=== PATIENT | female | born 1950 | race Caucasian/White ===

== ENCOUNTER 2023-06-15 08:52 | Outpatient (AMB) | payer MEDICARE, SELFPAY ==
--- NOTE | 2023-06-15 09:12 | AM.OFFWIN_ITS ---
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 She brought the take in for visualization. She denies any rash fever chills sweats myalgias PFSH Social History Patient Tobacco Use Status: Never used Tobacco Review of Systems Const All systems reviewed & are unremarkable except as noted in HPI and below Physical Exam Vital Signs: Last Vital Signs Temp 97.3 F 06/15/23 09:13 Pulse 80 06/15/23 09:13 BP 142/82 H 06/15/23 09:13 Pulse Ox 98 06/15/23 09:13 Oxygen Delivery Method Room Air 06/15/23 09:13 BMI result Body Mass Index 23.8 Const General: healthy appearing and no acute distress Skin Lesions: lesion noted (Lesion noted left hip with central induration and mild erythema) Assessment & Plan Assessment & Plan (1) Tick bite: Code(s): W57.XXXA - Bitten or stung by nonvenomous insect and other nonvenomous arthropods, initial encounter Plan: The patient will take preventative doxycycline. Plan See plan Medications: New doxycycline hyclate 100 mg PO .take 2 now 2 tabs 0RF 1 day Coding Level of Care Code Est Pt Level 3 (94081) Diagnoses Tick bite W57.XXXA
[2023-06-15 09:13] VITALS: BP 142/82; PULSE 80; TEMP 36.3; O2SAT 98; BMI 23.8
== END 2023-06-15 09:42 | disposition home or self-care (01) ==
PROVIDERS: Visit Provider Physician Assistant Medical
DX: T63.481A Toxic effect of venom of other arthropod, accidental (unintentional), initial encounter (principal)
CPT/HCPCS: 99213

== ENCOUNTER 2024-06-29 13:26 | Outpatient (AMB) | payer MEDICARE, SELFPAY ==
--- NOTE | 2024-06-29 13:39 | AM.OFFWIN_ITS ---
Intake Vital Signs 06/29/24 13:43 06/29/24 13:43 06/29/24 14:16 BP 200/91 H 190/95 H 160/90 H Blood Pressure Location Lt brachial Rt brachial Lt brachial Position Sitting Sitting Sitting Pulse 105 H 103 H Pulse Source Pulse Oximeter Pulse Oximeter Intake Visit Reasons: EP-High BP, no symptoms Patient Tobacco Use Status: Never used Tobacco Allergies No Known Allergies Allergy (Verified 06/15/23 09:14) HPI HPI Comments History of Present Illness Details 73 y/o Female patient who presents to [facility] walk in clinic with c/o Elevated BP readings. She had her BP checked @ her [facility] appointment today and it was elevated. She was advised to f/u with PCP for medication management. Pt currently does not have a PCP and has not been seen for awhile. Denies any Known chronic medical conditions. Denies taking any medications. Pt's BP readings in the office today elevated and Asymptomatic. [facility] Medical History (Updated 06/29/24 @ 14:37 by Luz Marina Rodriguez NP) Elevated blood pressure reading in office without diagnosis of hypertension Social History Patient Tobacco Use Status: Never used Tobacco Review of Systems Const All systems reviewed & are unremarkable except as noted in HPI and below Physical Exam Vital Signs: Last Vital Signs Pulse 103 H 06/29/24 13:43 BP 160/90 H 06/29/24 14:16 Const General: comfortable and no acute distress Nutritional Appearance: overweight Orientation/consciousness: patient oriented x3 Resp Effort & Inspection: normal respiratory effort and able to speak in complete sentences Auscultation: clear to auscultation bilaterally Cardio Rhythm: regular rhythm Heart sounds: S1 normal heart sound present and S2 normal heart sound present Neuro General: patient oriented x3, gait normal and moves all extremities Psych Speech and movement: Normal speech and movement present Assessment & Plan Assessment & Plan (1) Elevated blood pressure reading in office without diagnosis of hypertension: Code(s): R03.0 - Elevated blood-pressure reading, without diagnosis of hypertension Plan: Advised to keep BP readings Log Monitor BP at Home Twice a Day for seven Days. Advised Pt to return to [facility] clinic with BP Log Book for review If BP readings are high, will consider her on HTN medication. Advised Lifestyle changes; weight loss, exercise daily, Dash diet. Pt agrees to the plan in discussed. Coding Level of Care Code Est Pt Level 4 (71219) Diagnoses Elevated blood pressure reading in office without diagnosis of hypertension R03.0 Time Spent (min) 20
[2024-06-29 13:43] VITALS: BP 190/95; BP 200/91; PULSE 103; PULSE 105
[2024-06-29 14:16] VITALS: BP 160/90
--- OUTSIDE RECORDS SUMMARY | 2024-06-29 16:30 | XMS_ITS ---
Author Organization [facility] Address [address] [address] Care Team Providers Care Bottom Saw Operator Name Role Phone MELVIN SANDOVAL Unavailable [phone] Allergies No Known Allergies REASON FOR VISIT PMB Medications Medication SIG (Take, Route, Fr equency, Duration) Notes Start Date End Date Status Estradiol 0.1 MG/GM apply topically to p erineum nightly 06/29/2024 Active valACYclovir HCl 1 GM 1 tablet Orally Once a day Active Social History Tobacco Use: Social History Observation Description Date Details (start date - stop date) Never Smoker NA - NA Sexual History Question Answer Notes Had sex in the past 12 months (vaginal, oral, or anal)? No Have you ever had a Sexually transmitted disease ? No AUDIT-C (Standard) Question Answer Notes Did you have a drink contain ing alcohol in the past year? Yes How often did you have a dri nk containing alcohol in the past year? 2 to 3 times a week (3 points) How many drinks did you have on a typical day when you were drinking in the past year? 1 or 2 drinks (0 point) How often did you have six o r more drinks on one occasion in the past year? 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 Vital Signs Temperature 97.5 degrees Fahrenheit 06/30/19 25 Blood pressure systolic 220 mm Hg 06/30/19 25 Blood pressure diastolic 94 mm Hg 025 Height 61 in 06/29/2024 Weight 138 lbs 06/29/2024 BMI 26.07 kg/m2 06/29/2024 PT WILL GO TO [facility] [place] FOR REPEAT BP CKTHIS AFTERNOON AND CALL US WITH OUTCOME Encounters Encounter Location Date Provider Diagnosis [facility] [address] [place] [address] 06/29/2024 MELVIN SANDOVAL Abnormal uterine and vaginal bleeding, unspecified N93.9 and Elevated blood-pressure reading, without diagnosis of hypertension R03.0 Assessments Encounter Date Diagnosis (ICD Code) Assessment Notes Treatment Notes Treatment Clinical Notes Section Notes 06/29/2024 Abnormal uterine and vaginal bleeding, unspecified (ICD-10 - N93.9) Discussed options of 1. U/S to start - if lining is thin, and there is no further bleeding, the risk of uterine cancer is minimal. Pt encouraged to call with any future episodes of bleeding. or 2. sonohysterogram with endometrial biopsy. This would give a tissue diagnosis. Patient prefers to start with ultrasound, hoping to not need to proceed with biopsy/shakeelohrsoio luna. Her vaginal opening is small - advised to apply small amount of vaginal estradiol cream to the perineum/vaginal opening to allow for insertion of vaginal probe. If unable to be inserted vaginally, pt advised that she could request for the probe to be inserted rectally. 06/29/2024 Elevated blood-pressure reading, without diagnosis of hypertension (ICD-10 - R03.0) Patient with elevated blood pressure today. States she has been so very nervous about this appointment. She denies headaches, visual changes. She has no PCP. Encouraged patient to go to walk-in clinic for blood pressure check today and to call us with the results. Plan Of Treatment Medication Medication Name Sig Start Date Stop Date Notes Estradiol 0.1 MG/GM apply topically to perineum nightly Treatment Notes Assessment Notes Abnormal uterine and vaginal bleeding, unspecified Discussed options of 1. U/S to start - if lining is thin, and there is no further bleeding, the risk of uterine cancer is minimal. Pt encouraged to call with any future episodes of bleeding. or 2. sonohysterogram with endometrial biopsy. This would give a tissue diagnosis. Patient prefers to start with ultrasound, hoping to not need to proceed with biopsy/sonohysterogram. Her vaginal opening is small - advised to apply small amount of vaginal estradiol cream to the perineum/vaginal opening to allow for insertion of vaginal probe. If unable to be inserted vaginally, pt advised that she could request for the probe to be inserted rectally. Elevated blood-pressure read ing, without diagnosis of hypertension Patient with elevated blood pressure today. States she has been so very nervous about this appointment. She denies headaches, visual changes. She has no PCP. Encouraged patient to go to walk-in clinic for blood pressure check today and to call us with the results. Pending Test Test Name Order Date ULTRASOUND: PELVIC W/TRANSVAGINAL 2024 Next Appt Details Follow Up: prn, Reason: Provider Name:MELVIN Rm, 08/04/2024 01:00:00 PM, [address] [facility], [address], [place], [address], Progress Notes * VIANCA BARRERAB:[birth year] (73 yo F)Acc No.[id number]:06/29/2024 Progress Note Patient:?CHAU BARRERA Provider:?MELVIN SANDOVAL MD :1950???Age:73 Y???Sex:Female D ate:06/29/2024 Address:[address] [place] [address] Subjective: * Chief Complaints: * ???1. PMB. 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 ?73 year old female presents with c/o Abnormal bleeding:?Date problem started:?06/13/2024 ?Current bleeding problem:?postmenopausal bleeding ?Occurrence:?one time only ?Character of menopausal bleed:?spotty, bright red bleed ?Associated signs and symptoms:?no abdominal pain, no fever or chills, no vaginal odor or discharge ?She first noticed the blood on her underwear, then it continued through the day with light spotting. None since. Not sexually active since 2-3 years ago (her boyfriend is 85yo) when she was 43 yo, hasn't seen a foot press operator in the last [address] Arroyo. * ROS:?General/Constitutional:?Denies?Chills.?Denies?Fever.?Denies?Headache.?Denies?Lightheadedness.?Denie s?Weight gain.?Denies?Weight loss.?Ophthalmologic:?Patient denies?visual problems.?ENT:?Denies?Nosebleed.?Gastrointestinal:?Denies?Abdominal pain.?Denies?Blood in stool.?Denies?Hematemesis.?Denies?Rectal bleeding.?Hematology:?Denies?Easy bruising.?Denies?Family member with bleeding problems.?Women Only:?Patient complaining of?bleeding since menopause.?Genitourinary:?Denies?Blood in urine.? * Medical History:?Malignant m elanoma of other part of trunk. * Car Manager History:?/ Para?2/2.?Sexual activity?not currently sexually active.?Last Pap Smear:?20 YRS AGP PER PT.?Mammogram:?20 YRS AGO PER/PT.?LMP and menses?DEB.?History of STD's:?none.?Menarche?12.?Colonoscopy?20 YRS AGO PER/PT.?Gardasil:?has not had vaccine.? * OB History:?Total pregnancies?2.?Total living children?2.?NVD?2.? # 1:?normal spontaneous vaginal delivery (), 12/11/80, Poncho, 7lb 6oz, no complications.? # 2:?normal spontaneous vaginal delivery (), 04/24/88, Paddy (boy), 8lb 10oz, no complications.? * Surgical History:?Excision o f melanoma from abdomen 2000. * Hospitalization/Major Diagno stic Procedure:?childbirth . * Family History:?Mother: dece ased 91 yrs, dementia, cardiac.?Father: 75 yrs, lung cancer.?Sister Carlyn: alive 77 yrs, HTN.?Sister Chris: alive 62 yrs, Type 2.?Son Manuel: alive 44 yrs, well.?Son Paddy: alive 36 yrs, well.? Denies family history of breast, colon, uterine or ovarian cancers. * Social History:?Tobacco Use:?Tobacco Control (Standard)?Tobacco use:?Nonsmoker ???Sexual History:?Sexual History?Had sex in the past 12 months (vaginal, oral, or anal)??No ?Have you ever had a Sexually transmitted disease??No ?Details of Sexual History?Are you sexually active??No ?Have you had any sexually transmitted diseases (STDs)??No ?Sexual Abuse?History:?none ???Drugs/Alcohol:?Drugs?Have you used drugs other than those for medical reasons in the past 12 months??No ?Caffeine?Intake:?1-2 cups per day ???Miscellaneous:?Caffeine: 1-2 cups per day. ?Children: 2. ?Domestic violence: no, none. ?Exercise: walking. ?Home smoke detector use: yes, smoke detectors, carbon monoxide detector. ?Housing: owns a home. ?Legal problems: none. ?Living with: family SON Paddy. ?Marital status: . ?Natural support system: relies on family, relies on friends. 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 ?Pets: none. ?Sexual abuse: no, none. ?Sexually active: no. ?Travel outside of the [place]: WENT TO [place]. ?Verbal abuse: no, none. ???Household:?Household?Marital status:?Number of adults in household:?2 ???Drug/Alcohol:?AUDIT-C (Standard)?Did you have a drink containing alcohol in the past year??Yes ?How often did you have a drink containing alcohol in the past year??2 to 3 times a week (3 points) ?How many drinks did you have on a typical day when you were drinking in the past year??1 or 2 drinks (0 point) ?How often did you have six or more drinks on one occasion in the past year??Never (0 point) ?Points?3 ?Interpretation?Positive * Medications:?Taking valACYcl ovir HCl 1 GM Tablet 1 tablet Orally Once a day , Medication List reviewed and reconciled with the patient * Allergies:?N.K.D.A. Objective: * Vitals:?Ht: 61 in, Wt: 138 l bs, BMI:26.07Index, BP: 220/94 mm Hg, Temp: 97.5 F. PT WILL GO TO [facility] [place] FOR REPEAT BP CK? THIS AFTERNOON AND CALL US WITH OUTCOME. * Examination: ???General Examination: ?GENERAL APPEARANCE:? pleasant, well nourished, in no acute distress, supervisor plastic sheets present in room.?SKIN:? warm and dry.?Genitourinary - Female: ?ABDOMEN:? soft, non-tender, no mass.?EXTERNAL GENITALS:? normal.?URETHRAL MEATUS:? normal.?VAGINA:?permits one finger, healthy pink mucosa without any lesions or abnormal discharge, no lacerations.?ANUS/PERINEUM:? normal.?CERVIX:? downward, normal appearing, no cervical movement tenderness.?UTERUS:? normal size, mobile, non tender.?OVARIES:? no masses felt in adnexa.?Psychiatry: ?AFFECT:? appropriate.?ATTITUDE:? cooperative.?SPEECH:? clear.? Assessment: * Assessment: 1.?Abnormal uterine and vagi nal bleeding, unspecified - N93.9 (Primary)???2.?Elevated blood-pressure reading, without diagnosis of hypertension - R03.0??? Plan: * Treatment: 2.?Elevated blood-pressure r eading, without diagnosis of hypertension? Notes: Patient with elevated blood pressure today. States she has been so very nervous about this appointment. She denies headaches, visual changes. She has no PCP. Encouraged patient to go to walk-in clinic for blood pressure check today and to call us with the results.?? * Preventive Medicine:?~~~~~~~~~~~~~~~~~~~~~~~~~~~ How do I prepare for a pelvic ultrasound? ~~~~~~~~~~~~~~~~~~~~~~~~~~~ EAT/DRINK : Drink a minimum of 24 ounces of clear fluid at least one hour before your appointment. Do not empty your bladder until after the exam. Generally, no fasting or sedation is required for a pelvic ultrasound, unless the ultrasound is part of another procedure that requires anesthesia. For a transvaginal ultrasound, you should empty your bladder right before the procedure. Your doctor will explain the procedure to you and offer you the opportunity to ask any questions that you might have about the procedure. Based on your medical condition, your doctor may request other specific preparation. ~~~~~~~~~~~~~~~~~~~~~~~~~~~ What happens during a pelvic ultrasound? ~~~~~~~~~~~~~~~~~~~~~~~~~~~ A pelvic ultrasound may be performed in your doctor's office, on an outpatient basis, or as part of your stay in a hospital. Procedures may vary depending on your condition and your hospital's practices. Generally, a pelvic ultrasound follows this process: ~~~~~~~~~~~~~~~~~~~~~ For a transabdominal ultrasound ~~~~~~~~~~~~~~~~~~~~~ You will be asked to remove any clothing, jewelry, or other objects that may interfere with the scan. If asked to remove clothing, you will be given a gown to wear. You will lie on your back on an examination table. A gel-like substance will be applied to your abdomen. The transducer will be pressed against the skin and moved around over the area being studied. If blood flow is being assessed, you may hear a whoosh, whoosh sound when the Doppler probe is used. Images of structures will be displayed on the computer screen. Images will be recorded on various media for the health care record. Once the procedure has been completed, the gel will be removed. You may empty your bladder when the procedure is completed. ~~~~~~~~~~~~~~~~~~~ For a transvaginal ultrasound ~~~~~~~~~~~~~~~~~~~ You will be asked to remove any clothing, jewelry, or other objects that may interfere with the scan. If asked to remove clothing, you will be given a gown to wear. You will lie on an examination table, with your feet and legs supported as for a pelvic examination. A long, thin transvaginal transducer will be covered with a plastic or latex sheath and lubricated. The tip of the transducer will be inserted into your vagina. This may be slightly uncomfortable. The transducer will be gently turned and angled to bring the areas for study into focus. You may feel mild pressure as the transducer is moved. If blood flow is being assessed, you may hear a whoosh, whoosh sound when the Doppler probe is used. Images of organs and structures will be displayed on the computer screen. Images may be recorded on various media for the health care record. Once the procedure has been completed, the transducer will be removed. ~~~~~~~~~~~~~~~~~~~~~~~~~~ What happens after a pelvic ultrasound? ~~~~~~~~~~~~~~~~~~~~~~~~~~ There is no special type of care required after a pelvic ultrasound. You may resume your normal diet and activity unless your doctor advises you differently. There are no confirmed adverse biological effects on patients or instrument operators caused by exposures to ultrasound at the intensity levels used in a diagnostic ultrasound. Your doctor may give you additional or alternate instructions after the procedure, depending on your particular situation. * Follow Up:?prn * Images: Billing Information: * Visit Code:? 10296 Office Visit, New Pt., Level 3. * Procedure Codes:? 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 None since. Not sexually active since 2-3 years ago (her boyfriend is 85yo) when she was 43 yo, hasn't seen a foot press operator in the last [address] Arroyo. Current bleeding problem:: postmenopausa l bleeding ?Occurrence:: one time only ?Character of menopausal bleed:: spotty, bright red bleed Associated signs and symptom s:: no abdominal pain, no fever or chills, no vaginal odor or discharge Examination Category Sub-Category Detail Notes Category Not es Genitourinary - Female ABDOMEN: soft, non-tender, no mass EXTERNAL GENITALS: normal VAGINA: permits one finger, healthy pink mucosa without any lesions or abnormal discharge, no lacerations CERVIX: downward, normal betsy earing, no cervical movement tenderness UTERUS: normal size, mobile, non tender OVARIES: no masses felt in ad nexa URETHRAL MEATUS: normal ANUS/PERINEUM: normal Psychiatry ATTITUDE: cooperative AFFECT: appropriate SPEECH: clear General Examination GENERAL APPEARANCE: pleasant , well nourished, in no acute distress, supervisor plastic sheets present in room SKIN: warm and dry
--- OUTSIDE RECORDS SUMMARY | 2024-06-29 16:30 | XMS_ITS ---
Author Organization [facility] Address [address] [place] [address] Care Team Providers Care Technical Documentation Specialist Name Role Phone SANDOVAL, MELVIN Unavailable [phone] REASON FOR VISIT BP READING Encounters Encounter Location Date Provider Diagnosis [facility] [address] [address] 06/29/2024 MELVIN SANDOVAL Plan Of Treatment Next Appt Details Provider Name:MELVIN Rm, 08/04/2024 01:00:00 PM, [address] [place] [address], [address], [place], [address], Progress Notes * ANGEREHANA TERRELLLUIS MANUELB:[birth year] (73 yo F)Acc No.[id number]:06/29/2024 Patient:?CHAU BARRERA :1950???Age:73 Y???Sex:Female Address:[address] [place] [address], [address] * true * Date:? Generated for Printi ng/Faelsag/eTransmitting on:?06/29/2024 04:30 PM EDT
--- OUTSIDE RECORDS SUMMARY | 2024-06-29 16:30 | XMS_ITS | Patient Health Record ---
Author Organization 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 confirmed Problem Abnormal uterine bleeding (0761836893103 0) Abnormal uterine and vaginal bleeding, unspecified (N93.9) Active confirmed Vital Signs Temperature 97.5 degrees Fahrenheit 06/29/2024 PT WILL GO TO [facility] IN [place] FOR REPEAT BP CK THIS AFTERNOON AND CALL US WITH OUTCOME Blood pressure diastolic 94 mm Hg 06/29/2024 PT WILL GO TO [facility] IN [place] FOR REPEAT BP CK THIS AFTERNOON AND CALL US WITH OUTCOME Height 61 in 06/29/2024 PT WILL GO TO [facility] [place] FOR REPEAT BP CK THIS AFTERNOON AND CALL US WITH OUTCOME Blood pressure systolic 220 mm Hg 06/29/2024 PT WILL GO TO [facility] [place] FOR REPEAT BP CK THIS AFTERNOON AND CALL US WITH OUTCOME Weight 138 lbs 06/29/2024 PT WILL GO TO [facility] [place] FOR REPEAT BP CK THIS AFTERNOON AND CALL US WITH OUTCOME BMI 26.07 kg/m2 06/29/2024 PT WILL GO TO [facility] [place] FOR REPEAT BP CK THIS AFTERNOON AND CALL US WITH OUTCOME Encounters Encounter Location Date Provider Diagnosis [facility] [address] [place] [address] 06/29/2024 MELVIN SANDOVAL Abnormal uterine and vaginal bleeding, unspecified N93.9 and Elevated blood-pressure reading, without diagnosis of hypertension R03.0 [facility] [address] [place] [address] 06/29/2024 MELVIN SANDOVAL Assessments Encounter Date Diagnosis (ICD Code) Assessment [...] hoping to not need to proceed with biopsy/sonohrosio luan. Her vaginal opening is small - advised [...] us with the results. Plan Of Treatment Pending Test Test Name Order Date ULTRASOUND: PELVIC W/TRANSVAGINAL 2024 Next Appt Details Provider Name:MELVIN Rm, 08/04/2024 01:00:00 PM, [address] [facility], [address], [place], [address], Insurance Providers Payer Name Payer Address Payer Phone Subscriber Number Group Number Insured Name Patient Relationship to Insured Coverage Start Date Coverage End Date [facility] [address] [address] [place] [phone] [id number] CHAU BARRERA Self - patient is the insured Medical (General) History Medical History History ICD Code Malignant melanoma of other part of trun k C43.59 Surgical History Surgery Date(Month/Year) Excision of melanoma from abdomen 2000 Hospitalization History Reason Date(Month/Year) childbirth
== END 2024-06-29 14:37 | disposition home or self-care (01) ==
PROVIDERS: Visit Provider Nurse Practitioner Family
DX: R03.0 Elevated blood-pressure reading, without diagnosis of hypertension (principal)

== ENCOUNTER → 2024-06-29 13:26 | Outpatient (BNVA) | payer MEDICARE, SELFPAY | PROVIDERS: Visit Provider Nurse Practitioner Family | DX: R03.0 Elevated blood-pressure reading, without diagnosis of hypertension (principal) | CPT/HCPCS: 99212 ==

== ENCOUNTER 2024-08-01 09:11 | Outpatient (AMB) | payer MEDICARE, SELFPAY ==
--- NOTE | 2024-08-01 09:24 | MHC.PC.OV ---
Vital Signs 08/01/24 09:25 Height 5 ft 2 in Weight 138 lb BMI 25.2 BP 188/92 H Blood Pressure Location Rt brachial Position Sitting Respiration 14 Pulse 98 Pulse Source Pulse Oximeter Temp 97.6 F Temp Source Temporal Artery Scan Pulse Oximetry (%) 99 Oxygen Delivery Method Room Air Intake Visit Reasons: establish care Finisher Cold Rolling Required: No Accompanied by: Self / Same As Patient Allergies No Known Allergies Allergy (Verified 08/01/24 10:06) Medication List - Last Reconciled 08/01/24 by Gill Mcmillan PA-C lisinopril 10 mg PO DAILY valacyclovir 4,000 mg PO ONCE Tobacco use date assessed: 08/01/24 Fall risk assessment: No Falls in past year Last assessed Fall Risk: 08/01/24 Dental Screening Dental Screen Date: 08/01/24 Did you have a dental visit in the last 12 months?: Yes Did you have a dental problem in the last 6 months where you did not have access to dental care?: No Was dental information given to patient?: Patient has dentist HPI establish care HPI Details The patient is a 73-year-old female presenting addendum to establish a new primary care provider with concerns related to hypertension. 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 The precise blood pressure values were not mentioned; however, they were reported as significantly high. Home monitoring has been attempted, though the patient finds it difficult to obtain reliable readings with the equipment available. Although patient came in with blood pressures over 140/90 that she has been recording at home. There is a family history of hypertension, with her sister affected by high blood pressure. The patient denies symptoms that could suggest cardiovascular complications, such as chest pain, dyspnea, dizziness, cephalgia, visual disturbances, paresthesia, or jaw pain. Despite a lack of recent primary care follow-up, she has regular gynecological and dermatological evaluations. Given her elevated readings and challenges with home monitoring, the visit today is centered around establishing a management plan for her hypertension, including initiating treatment and considering necessary follow-up tests. Social History - Regular follow-ups with a supervisor parachute manufacturing and a ocular care aide. - Adheres to dental check-ups every six months. - No mention of current employment or family planning concerns. [facility] Medical History Establishing care with new doctor, encounter for Overweight with body mass index (BMI) of 25 to 25.9 in adult Hypertension Family History Father Lung cancer Mother No problems noted. Social History Housing: House Alcohol intake: current Alcohol intake frequency: holidays/special occasions only Alcohol type: wine Patient Tobacco Use Status: Never used Tobacco service: No Current occupational status: retired Cognitive needs: No Hearing needs: No Vision needs: Yes (reading glasses) Questionnaire PHQ-9 Over the last 2 weeks, how often have you been bothered by any of the following problems? 1. Little interest or pleasure in doing things: not at all 2. Feeling down, depressed, or hopeless: not at all 3. Trouble falling or staying asleep, or sleeping too much: not at all 4. Feeling tired or having little energy: not at all 5. Poor appetite or overeating: not at all 6. Feeling bad about yourself - or that you are a failure or have let yourself or your family down: not at all 7. Trouble concentrating on things, such as reading the newspaper or watching television: not at all 8. Moving or speaking so slowly that other people could have noticed. Or the opposite - being so fidgety or restless that you have been moving around a lot more than usual: not at all 9. Thoughts that you would be better off or of hurting yourself in some way: not at all Total score: 0 Depression Screening Interpretation: Negative Depression Screening Done: Yes 86389 - PHQ-9 Billing: Yes Source: Developed by Drs. Ian Gaytan, Gypsy Rodriguez, Jose Mayo and colleagues, with an educational gilberto from [employer]. Thrive Questionnaire Date Thrive assessed: 08/01/24 I am a: Patient What is your living situation today?: I have a steady place to live Within the past 12 months, did the food you bought not last and you didn't have the money to get more?: Never true Within the past 12 months, did you worry whether your food would run out before you got money to buy more?: Never true Do you have trouble paying for medicines?: No Do you have trouble getting transportation to medical appointments?: No Do you have trouble paying your heating and electricity bill?: No Do you have trouble taking care of your child, family member or friend?: No Do you have trouble with day-to-day activities such as bathing, preparing meals, shopping, managing finances, etc.?: No Are you currently unemployed and looking for a job?: No Are you interested in more education?: No Please select the resources that you would like help with: None THRIVE Score: 0 AUDIT C Alcohol Use Questionnaire (AUDIT-C) 1. How often do you have a drink containing alcohol?: Monthly or less 2. How many drinks containing alcohol do you have on a typical day when you are drinking?: 1 or 2 3. How often do you have six or more drinks on one occasion?: Never Total Score: 1 Score Reviewed/Action Taken: No BOBBY-7 AMB Questionnaire BOBBY-7 Date BOBBY - 7 assessed: 08/01/24 Feeling nervous, anxious, or on edge: 0 = Not at all Not being able to stop or control worryin = Not at all Worrying too much about different things: 0 = Not at all Trouble relaxin = Not at all Being so restless that it is hard to sit still: 0 = Not at all Becoming easily annoyed or irritable: 0 = Not at all Feeling afraid as if something awful might happen: 0 = Not at all Total BOBBY-7 score (0-4 normal; 5-9 mild; 10-14 moderate; 15-21 severe): 0 Source: Developed by Drs. Ian Gaytan, Gypsy Rodriguez, Jose Mayo and colleagues, with an educational giblerto from [employer]. BOBBY-7 Assessment Billing BOBBY-7 Assessment Tool: BOBBY-7 Assessment 70637 Review of Systems Const Details: - Cardiovascular: Denies chest pain, shortness of breath, and leg swelling. - Neurological: Denies dizziness, headaches, changes in vision, numbness, or jaw pain. - Gastrointestinal: Denies abdominal pain. - Musculoskeletal: Denies bone pain or joint issues. - General: Denies recent weight gain or loss. Physical exam (Primary Care) Vital Signs: Last Vital Signs Temp 97.6 F 08/01/24 09:25 Pulse 98 08/01/24 09:25 Resp 14 08/01/24 09:25 BP 188/92 H 08/01/24 09:25 Pulse Ox 99 08/01/24 09:25 Oxygen Delivery Method Room Air 08/01/24 09:25 Care Plan Goal for BP management: <140/90 patient will be started on lisinopril 10 mg daily. Instructed to return in 1 month for blood pressure check BMI result Body Mass Index 25.2 BMI Assessment/Plan discussion: High BMI High, discussed plan: lifestyle, weight reduction, dietary, physical activity and alcohol moderation Tobacco/Smoking Status: Tobacco use Status Tobacco use date assessed 08/01/24 08/01/24 09:34 Patient Tobacco Use Status Never used Tobacco 08/01/24 09:32 PHQ-9: PHQ-9 Score PHQ-9: Total score 0 08/01/24 10:07 Depression Screening Interpretation: Negative Thrive Assessment: Date of Thrive Assessment Date Thrive assessed 08/01/24 08/01/24 09:34 Const Other: Appearance: Alert. Oriented X3. No acute distress. Head: Normal external exam. Normocephalic. Atraumatic. Eyes: Pupils are equal, round, and reactive to light. Extraocular movements intact. Conjunctiva and sclera normal. Eyelids normal. Ears: External auditory canal normal. Tympanic membranes normal. Throat: Pharynx normal. Uvula midline. Moist mucous membranes. Neck: Normal inspection. Neck supple. Full range of motion. Cardiovascular: Normal heart rate and rhythm. Heart sound normal. No murmurs noted. Pulses normal throughout. Respiratory: No respiratory distress. Painless inspiration. Breath sounds normal. No wheezes/rales/rhonchi noted. Chest nontender. No accessory muscle usage noted or decreased air movement noted. Abdomen: Soft and nontender. No distention noted. No organomegaly noted. Back: No costovertebral angle tenderness. Full range of motion noted. Skin: Skin warm and dry. Normal skin color. Normal skin turgor. No rashes/lesions/lacerations noted. Extremities: No lower extremity edema. Extremities exhibit normal range of motion. Extremities nontender. Neuro: Oriented X 3. No motor deficit. No sensory deficit. Reflexes normal. Coding Level of Care Code Est Pt Level 4 (83519) Complex EM visit Add On G2211 Diagnoses Establishing care with new doctor, encounter for Z76.89 Overweight with body mass index (BMI) of 25 to 25.9 in adult E66.3; Z68.25 Hypertension I10 Additional Codes PHQ-9 - 98590 - PHQ-9 Billing: Yes ([id number]) BOBBY-7 Assessment Billing - BOBBY-7 Assessment Tool: BOBBY-7 Assessment 16678 ([id number]) Assessment & Plan Assessment & Plan (1) Establishing care with new doctor, encounter for: Code(s): Z76.89 - Persons encountering health services in other specified circumstances Category: Medical Plan: Patient has not seen a primary care in over 20 years. Patient here to establish a new primary care provider. (2) Overweight with body mass index (BMI) of 25 to 25.9 in adult: Code(s): E66.3 - Overweight; Z68.25 - Body mass index [BMI] 25.0-25.9, adult Category: Medical Plan: Patient to improve her diet and exercise regimen. Decreased any fatty fried salty foods. Condition is chronic and stable will continue to monitor. (3) Hypertension: Code(s): I10 - Essential (primary) hypertension Category: Medical Plan: Patient will be started on lisinopril 10 mg daily. Patient to follow her blood pressure over the next month with a blood pressure log. Patient to return in 1 month. Goal for blood pressure is less than 140/90. Condition is chronic and stable will continue to monitor. Plan Plan Patient was informed and verbally consented to the use of an ambient scribe for clinic note documentation during this visit. 1. Essential Hypertension The patient is initiated on lisinopril 10 mg daily to manage essential hypertension. Monitoring blood pressure at home is recommended, along with dietary modifications to reduce sodium and caffeine. Risks, including angioedema and cough associated with lisinopril, were reviewed. A follow-up with a blood pressure log is planned in one month. The discussion with the patient regarding essential hypertension emphasized the necessity of initiation of lisinopril to manage high blood pressure. I explained the potential side effects, including angioedema and cough, and the importance of avoiding high sodium and caffeine intake for blood pressure control. We reviewed how to monitor her blood pressure at home, ensuring she is ready to return with readings for her next visit. The plan includes follow-up for further evaluation of blood pressure management efficacy and treatment adjustment if necessary. Orders: Orders XR DEXA axial skeleton Today M81.0 - Age-related osteoporosis without current pathological fracture Liver Panel Today Z00.00 - Encounter for general adult medical examination without abnormal findings Hemoglobin A1c Today Z00.00 - Encounter for general adult medical examination without abnormal findings Vitamin B12 and Folate Today Z00.00 - Encounter for general adult medical examination without abnormal findings MM screening mammo BI Today Z12.31 - Encounter for screening mammogram for malignant neoplasm of breast C Reactive Protein Today Z00.00 - Encounter for general adult medical examination without abnormal findings Complete Blood Count Auto Diff Today Z00.00 - Encounter for general adult medical examination without abnormal findings Comprehensive [place] [facility]. Panel Fast Today Z00.00 - Encounter for general adult medical examination without abnormal findings Magnesium Today Z00.00 - Encounter for general adult medical examination without abnormal findings Lipid Panel Today Z00.00 - Encounter for general adult medical examination without abnormal findings TSH reflex Free T4 Today Z00.00 - Encounter for general adult medical examination without abnormal findings Vitamin D 25-OH Total Today Z00.00 - Encounter for general adult medical examination without abnormal findings Referrals Gastroenterology Referral Z12.11 - Encounter for screening for malignant neoplasm of colon Medications: New lisinopril 10 mg PO DAILY 30 tabs 0RF I10 - Essential (primary) hypertension Patient Instructions: - Start lisinopril 10 mg daily as prescribed. - Record blood pressure readings at home and keep a log. - Avoid high-sodium foods, caffeine, and fatty or fried foods. - Return for follow-up in one month with your blood pressure log. - If you experience severe lip swelling or breathing difficulty, call 911. - Report any persistent dry cough or rash.
[2024-08-01 09:25] VITALS: BP 188/92; PULSE 98; RESP 14; TEMP 36.4; O2SAT 99; BMI 25.2
--- OUTSIDE RECORDS SUMMARY | 2024-08-01 09:51 | XMS_ITS | Patient Health Record ---
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) Active confirmed Problem Abnormal uterine bleeding ([id number] 0) Abnormal uterine and vaginal bleeding, unspecified (N93.9) Active confirmed Vital Signs Temperature 97.5 degrees Fahrenheit 06/29/2024 PT WILL GO TO [facility] IN [place] FOR REPEAT BP CK THIS AFTERNOON AND CALL US WITH OUTCOME Blood pressure diastolic 94 mm Hg 06/29/2024 PT WILL GO TO [facility] IN [place] FOR REPEAT BP CK THIS AFTERNOON AND CALL US WITH OUTCOME Height 61 in 06/29/2024 PT WILL GO TO [facility] [place] FOR REPEAT BP CK THIS AFTERNOON AND CALL US WITH OUTCOME Blood pressure systolic 220 mm Hg 06/29/2024 PT WILL GO TO [facility] [place] FOR REPEAT BP CK THIS AFTERNOON AND CALL US WITH OUTCOME Weight 138 lbs 06/29/2024 PT WILL GO TO [facility] [place] FOR REPEAT BP CK THIS AFTERNOON AND CALL US WITH OUTCOME BMI 26.07 kg/m2 06/29/2024 PT WILL GO TO [facility] [place] FOR REPEAT BP CK THIS AFTERNOON AND CALL US WITH OUTCOME Encounters Encounter Location Date Provider Diagnosis [facility] [address] [place] [address] 06/29/2024 MELVIN SANDOVAL Abnormal uterine and vaginal bleeding, unspecified N93.9 and Elevated blood-pressure reading, without diagnosis of hypertension R03.0 [facility] [place] [address] [place] [address] 06/29/2024 MELVIN SANDOVAL Assessments Encounter Date Diagnosis [...] to not need to proceed with biopsy/sonohrosio luna. Her vaginal opening is small - [...] Name:MELVIN Rm, 08/04/2024 01:00:00 PM, [address] [facility], [address], [place], [address], Insurance Providers Payer Name Payer Address Payer Phone Subscriber Number Group Number Insured Name Patient Relationship to Insured Coverage Start Date Coverage End Date [facility] [address] [address] [place] [address] [id number] CHAU BARRERA Self - patient is the insured Medical (General) History Medical History History ICD Code Malignant melanoma of other part of trun k C43.59 Surgical History Surgery Date(Month/Year) Excision of melanoma from abdomen 2000 Hospitalization History Reason Date(Month/Year) childbirth
== END 2024-08-01 10:03 | disposition home or self-care (01) ==
LOC: HO.HMCSH 09:11
PROVIDERS: PCP Internal Medicine; Visit Provider Physician Assistant Medical
DX: Z76.89 Persons encountering health services in other specified circumstances (principal); E66.3 Overweight; Z68.25 Body mass index [BMI] 25.0-25.9, adult; I10 Essential (primary) hypertension

== ENCOUNTER → 2024-08-01 09:11 | Outpatient (BNVA) | payer MEDICARE, SELFPAY | PROVIDERS: PCP Internal Medicine; Visit Provider Physician Assistant Medical | DX: E66.3 Overweight (principal); Z68.25 Body mass index [BMI] 25.0-25.9, adult; I10 Essential (primary) hypertension; Z76.89 Persons encountering health services in other specified circumstances; Z71.3 Dietary counseling and surveillance | CPT/HCPCS: 96127; 99212 ==

== ENCOUNTER 2024-08-28 08:46 | Outpatient (REF) | payer MEDICARE, SELFPAY ==
--- OUTSIDE RECORDS SUMMARY | 2024-08-28 09:12 | XMS_ITS ---
Author Organization [facility] Address [facility] [address] [address] Care Team Providers Care Assistance Coordinator Name Role Phone MELVIN SANDOVAL Unavailable [phone] REASON FOR VISIT ULTRA - PMB Encounters Encounter Location Date Provider Diagnosis [facility], [facility] [address] [place] [address] 08/04/2024 MELVIN SANDOVAL Plan Of Treatment Next Appt Details Provider Name:MELVIN Rm, 09/22/2024 10:00:00 AM[facility] [address], [place], [address], Provider Name:MELVIN Rm, 09/22/2024 10:00:00 AM, [facility], [address], [place], [address], Progress Notes * FIDEL BARRERAADOB:[birth year] (73 yo F)Acc No.[id number]:08/04/2024 PROGRESS NOTES Patient:?REHANA BARRERAINDA Provider:?MELVIN SANDOVAL MD :1950???Age:73 Y???Sex:Female D ate:08/04/2024 Address:[address] [place], [place] [id number] Subjective: * Chief Complaints: * ???1. ULTRA - PMB. * Medical History:? Objective: * Vitals:? Assessment: Plan: * Treatment: * Images: Billing Information: * Visit Code:? * Procedure Codes:? * Electronic signature of MELVIN SANDOVAL MD on 08/28/2024 at 09:11 AM EDT Sign off status: Pending * Provider:?MELVIN SANDOVAL MD Date:?2024 Generated for Jess weiss/Jarod/Edi on:?08/28/2024 09:11 AM EDT
[2024-08-28 13:21] LABS: MANUAL DIFF FLAG NO
[2024-08-28 13:29] LABS: Basophils Absolute Auto 0.1 X10*3/uL (0.0-0.2); Basophils Percent Auto 1.2 % (0-2); Eosinophils Percent Auto 0.2 % (0-4); Hematocrit 46.2 % (37.0-47.0); Hemoglobin 15.8 g/dl (12.0-16.0); Imm Gran Abs Auto 0.01 X10*3/uL (0.00-0.03); Imm Gran Pct Auto 0.2 % (0.0-0.4); Lymphocytes Absolute Auto 1.9 X10*3/uL (1.2-4.9); Lymphocytes Percent Auto 31.1 % (20-40); Mean Corpuscular HGB Conc 34.2 g/dl (31.0-35.0); Mean Corpuscular Hemoglobin 32.8 pg (27.0-33.0); Mean Platelet Volume 10.6 fL (9.4-12.3); Monocytes Absolute Auto 0.5 X10*3/uL (0.1-1.2); Monocytes Percent Auto 8.3 % (2-11); Neutrophils Absolute Auto 3.6 x10*3/uL (2.0-8.3); Platelet Count 246 X10*3/uL (160-400); Red Blood Count 4.81 X10*6/uL (4.20-5.50); Red Cell Distribution Width 13.3 % (11.0-16.0); White Blood Count 6.1 X10*3/uL (4.8-10.8)
[2024-08-28 13:43] LABS: Estimated Average Glucose 108 mg/dL; Hemoglobin A1c % 5.4 % (<6.0); Total Hemoglobin (HGBA1C) 4121.3043 umol/L
[2024-08-28 14:03] LABS: Alanine Aminotransferase 23 U/L (0-31); Albumin Level 4.6 g/dL (3.5-5.0); Alkaline Phosphatase 63 U/L (39-117); Anion Gap 14 (12-20); Aspartate Amino Transferase 29 U/L (5-31); Bilirubin Direct 0.2 mg/dL (0.0-0.5); Bilirubin Total 0.5 mg/dL (0.0-1.0); Blood Urea Nitrogen 11 mg/dL (9-16); C Reactive Protein 0.14 mg/dL (< or = 0.50); Calcium 9.7 mg/dL (8.4-10.2); Carbon Dioxide 25 mmol/L (22-29); Chloride 104 mmol/L (96-108); Cholesterol 231 mg/dL (<200); Estimated Glomerular Filt Rate > 60; Glucose Fasting 98 mg/dL (60-99); HDL Cholesterol 74 mg/dL (>40); LDL Cholesterol Calculated 138 mg/dL (<100); Magnesium 2.2 mg/dL (1.6-2.6); Potassium 4.5 mmol/L (3.3-5.1); Sodium 138 mmol/L (135-145); TSH reflex Free T4 1.54 uIU/mL (0.32-4.0); Total Protein 7.1 g/dL (6.5-8.0); Triglycerides 99 mg/dL (<150); Vitamin D 25-OH Total 102.8 ng/mL (>30)
[2024-08-28 14:17] LABS: Folate 13.8 ng/mL (> or = 4.0); Vitamin B12 623 pg/mL (200-900)
== END 2024-08-28 08:47 | disposition home or self-care (01) ==
LOC: HO.HMGCLDS 08:46
PROVIDERS: PCP Physician Assistant Medical; Visit Provider Physician Assistant Medical
DX: Z00.00 Encounter for general adult medical examination without abnormal findings (principal); Z13.1 Encounter for screening for diabetes mellitus
CPT/HCPCS: 36415; 80053; 80061; 80076; 82248; 82306; 82607; 82746; 83036; 83735; 84443; 85025; 86140

== ENCOUNTER 2024-09-05 08:51 | Outpatient (AMB) | payer MEDICARE, SELFPAY ==
--- OUTSIDE RECORDS SUMMARY | 2024-08-04 09:00 | XMS_ITS ---
Author Organization [facility] [employer] [facility] [address] [address] Care Team Providers Care Web Marketing Coordinator Name Role Phone MELVIN SANDOVAL Unavailable [phone] REASON FOR VISIT ULTRA - PMB Encounters Encounter Location Date Provider Diagnosis [facility] [employer] [address] [facility] [address] [place] [address] 08/04/2024 MELVIN SANDOVAL Plan Of Treatment Next Appt Details Provider Name:MELVIN Rm, 09/22/2024 10:00:00 AM, [facility], [address], [place], [address], Provider Name:MELVIN Kemar Rm, 09/22/2024 10:00:00 AM, [facility], [address], [place], [address], Progress Notes * FIDEL BARRERAADOB:[birth year] (74 yo F)Acc No.[id number]:08/04/2024 PROGRESS NOTES Patient: FIDEL CHAVEZA Provider: Kemar SANDOVAL MD :1950 A ge:73 Y S ex:Female Date:08/04/2024 Address:[address] [place], [place] [id number] Subjective: * Chief Complaints: * 1 . ULTRA - PMB. * Medical History: Objective: * Vitals: Assessment: Plan: * Treatment: * Images: Billing Information: * Visit Code: * Procedure Codes: * Electronic signature of MELVIN SANDOVAL MD on 09/05/2024 at 09:15 AM EDT Sign off status: Pending * Provider: Kemar SANDOVAL MD Date: 0 08/04/2024 Generated for Jess weiss/Jarod/Edi on: 0 09/05/2024 09:15 AM EDT
--- NOTE | 2024-09-05 08:58 | A.OFFPC_ITS ---
Vital Signs 09/05/24 09:04 Height 5 ft 1 in Weight 135 lb 0.4 oz BMI 25.5 BP 132/78 Blood Pressure Location Lt brachial Position Sitting Pulse 87 Pulse Source Pulse Oximeter Temp 97.5 F Pulse Oximetry (%) 99 Intake Visit Reasons: 1 month follow up Intake Note: no issues just would like to review blood work Allergies No Known Allergies Allergy (Verified 09/05/24 09:23) Medication List - Last Reconciled 09/05/24 by Gill Mcmillan PA-C lisinopril 10 mg PO DAILY valacyclovir 4,000 mg PO ONCE Tobacco use date assessed: 08/01/24 Fall risk assessment: No Falls in past year Dental Screening Dental Screen Date: 08/01/24 Did you have a dental visit in the last 12 months?: Yes Did you have a dental problem in the last 6 months where you did not have access to dental care?: No Was dental information given to patient?: No HPI 1 month follow up HPI Details The patient is a 74-year-old female presenting for management of hypertension and hyperlipidemia. The patient has been taking lisinopril 10 mg daily for hypertension without experiencing any adverse effects. Her blood pressure was initially recorded at 152/70 mmHg, but upon retaking, it was 130/78 mmHg, which aligns with her home readings. She reports no symptoms such as chest pain, shortness of breath, numbness, or headaches. The patient has a history of hyperlipidemia with a total cholesterol level of 231 mg/dL and LDL cholesterol of 138 mg/dL. She is interested in managing her cholesterol through dietary modifications and has been provided with educational materials to assist with this. Social History - Nutrition: Patient is interested in di etary modifications to manage cholesterol and reports eating well. [facility] Medical History (Updated 09/05/24 @ 09:58 by Gill Mcmillan PA-C) Hyperlipidemia Pure hypercholesterolemia, unspecified Establishing care with new doctor, encounter for Overweight with body mass index (BMI) of 25 to 25.9 in adult Hypertension Family History Father Lung cancer Mother No problems noted. Social History Housing: House Alcohol intake: current Alcohol intake frequency: holidays/special occasions only Alcohol type: wine Patient Tobacco Use Status: Never used Tobacco e-Cigarette/Vaping Use: Never Used service: No Current occupational status: retired Cognitive needs: No Hearing needs: No Vision needs: Yes (reading glasses) Questionnaire PHQ-9 Over the last 2 weeks, how often have you been bothered by any of the following problems? 1. Little interest or pleasure in doing things: not at all 2. Feeling down, depressed, or hopeless: not at all 3. Trouble falling or staying asleep, or sleeping too much: not at all 4. Feeling tired or having little energy: not at all 5. Poor appetite or overeating: not at all 6. Feeling bad about yourself - or that you are a failure or have let yourself or your family down: not at all 7. Trouble concentrating on things, such as reading the newspaper or watching television: not at all 8. Moving or speaking so slowly that other people could have noticed. Or the opposite - being so fidgety or restless that you have been moving around a lot more than usual: not at all 9. Thoughts that you would be better off or of hurting yourself in some way: not at all Total score: 0 Depression Screening Interpretation: Negative Depression Screening Done: Yes 45721 - PHQ-9 Billing: Yes Source: Developed by Drs. Ian Gaytan, Gypsy Rodriguez, Jose Mayo and colleagues, with an educational gilberto from [employer]. Thrive Questionnaire Date Thrive assessed: 08/01/24 I am a: Patient What is your living situation today?: I have a steady place to live Within the past 12 months, did the food you bought not last and you didn't have the money to get more?: Never true Within the past 12 months, did you worry whether your food would run out before you got money to buy more?: Never true Do you have trouble paying for medicines?: No Do you have trouble getting transportation to medical appointments?: No Do you have trouble paying your heating and electricity bill?: No Do you have trouble taking care of your child, family member or friend?: No Do you have trouble with day-to-day activities such as bathing, preparing meals, shopping, managing finances, etc.?: No Are you currently unemployed and looking for a job?: No Are you interested in more education?: No Please select the resources that you would like help with: None THRIVE Score: 0 AUDIT C Alcohol Use Questionnaire (AUDIT-C) 1. How often do you have a drink containing alcohol?: Monthly or less 2. How many drinks containing alcohol do you have on a typical day when you are drinking?: 1 or 2 3. How often do you have six or more drinks on one occasion?: Never Total Score: 1 Score Reviewed/Action Taken: No BOBBY-7 AMB Questionnaire BOBBY-7 Date BOBBY - 7 assessed: 08/01/24 Feeling nervous, anxious, or on edge: 0 = Not at all Not being able to stop or control worryin = Not at all Worrying too much about different things: 0 = Not at all Trouble relaxin = Not at all Being so restless that it is hard to sit still: 0 = Not at all Becoming easily annoyed or irritable: 0 = Not at all Feeling afraid as if something awful might happen: 0 = Not at all Total BOBBY-7 score (0-4 normal; 5-9 mild; 10-14 moderate; 15-21 severe): 0 Source: Developed by Drs. Ian Gaytan, Gypsy Rodriguez, Jose Maoy and colleagues, with an educational gilberto from [employer]. BOBBY-7 Assessment Billing BOBBY-7 Assessment Tool: BOBBY-7 Assessment 58882 Review of Systems Const Details: - Cardiovascular: Denies chest pain, orthopnea, or syncope. - Respiratory: Denies dyspnea, cough, or wheezing. - Neurological: Denies headaches, dizziness, or numbness. - Dermatological: Denies rashes or swelling. Physical exam (Primary Care) Vital Signs: Last Vital Signs Temp 97.5 F 09/05/24 09:04 Pulse 87 09/05/24 09:04 BP 152/78 H 09/05/24 09:04 Pulse Ox 99 09/05/24 09:04 Care Plan Goal for BP management: <140/90 at Goal BMI result Body Mass Index 25.5 Tobacco/Smoking Status: Tobacco use Status Tobacco use date assessed 08/01/24 09/05/24 09:07 Patient Tobacco Use Status Never used Tobacco 09/05/24 09:07 e-Cigarette/Vaping Use Never Used 09/05/24 09:07 PHQ-9: PHQ-9 Score PHQ-9: Total score 0 09/05/24 09:07 Depression Screening Interpretation: Negative Thrive Assessment: Date of Thrive Assessment Date Thrive assessed 08/01/24 09/05/24 09:07 Const Other: Appearance: Alert. Oriented X3. No acute distress. Head: Normal external exam. Normocephalic. Atraumatic. Eyes: Pupils are equal, round, and reactive to light. Extraocular movements intact. Conjunctiva and sclera normal. Eyelids normal. Throat: Pharynx normal. Uvula midline. Moist mucous membranes. Neck: Normal inspection. Neck supple. Full range of motion. Cardiovascular: Normal heart rate and rhythm. Heart sound normal. No murmurs noted. Pulses normal throughout. Respiratory: No respiratory distress. Painless inspiration. Breath sounds normal. No wheezes/rales/rhonchi noted. Chest nontender. No accessory muscle usage noted or decreased air movement noted. Back: Full range of motion noted. Skin: Skin warm and dry. Normal skin color. Normal skin turgor. No rashes/lesions/lacerations noted. Extremities: Extremities exhibit normal range of motion. Neuro: Oriented X 3. No motor deficit. No sensory deficit. Reflexes normal. Results Reviewed Results Reviewed: - Labs: Total cholesterol 231 mg/dL, LDL cholesterol 138 mg/dL Coding Level of Care Code Est Pt Level 4 (71250) Complex EM visit Add On G2211 Diagnoses Hypertension I10 Pure hypercholesterolemia, unspecified E78.00 Hyperlipidemia E78.5 Additional Codes BOBBY-7 Assessment Billing - BOBBY-7 Assessment Tool: BOBBY-7 Assessment 47945 ([id number]) PHQ-9 - 39782 - PHQ-9 Billing: Yes ([id number]) Assessment & Plan Assessment & Plan (1) Hypertension: Code(s): I10 - Essential (primary) hypertension Category: Medical Plan: The patient is currently on lisinopril 10 mg daily, which she tolerates well without side effects. Her blood pressure readings have improved, with a current measurement of 130/78 mmHg, consistent with home readings. A follow-up in three months is planned to monitor blood pressure control. Condition is chronic and stable will continue to monitor. (2) Pure hypercholesterolemia, unspecified: Code(s): E78.00 - Pure hypercholesterolemia, unspecified Category: Medical Plan: The patient has elevated cholesterol levels with a total cholesterol of 231 mg/dL and LDL of 138 mg/dL. Patient was not interested in starting cholesterol- lowering medication at this time she would like to trial diet and exercise 1st as this is the 1st time she was told she had high cholesterol. She is advised to implement dietary changes to lower cholesterol, supported by educational materials provided during the visit. A follow-up is scheduled in three months to assess the effectiveness of dietary interventions. ASCVD score 16.4%. (3) Hyperlipidemia: Code(s): E78.5 - Hyperlipidemia, unspecified Category: Medical Plan: The patient has elevated cholesterol levels with a total cholesterol of 231 mg/dL and LDL of 138 mg/dL. Patient was not interested in starting cholesterol- lowering medication at this time she would like to trial diet and exercise 1st as this is the 1st time she was told she had high cholesterol. She is advised to implement dietary changes to lower cholesterol, supported by educational materials provided during the visit. A follow-up is scheduled in three months to assess the effectiveness of dietary interventions. ASCVD score 16.4%. Condition is chronic and stable continue to monitor. Plan Plan Patient was informed and verbally consented to the use of an ambient scribe for clinic note documentation during this visit. 1. Essential Hypertension The patient is currently on lisinopril 10 mg daily, which she tolerates well without side effects. Her blood pressure readings have improved, with a current measurement of 130/78 mmHg, consistent with home readings. A follow-up in three months is planned to monitor blood pressure control. 2. Hyperlipidemia The patient has elevated cholesterol levels with a total cholesterol of 231 mg/dL and LDL of 138 mg/dL. Patient was not interested in starting cholesterol- lowering medication at this time she would like to trial diet and exercise 1st as this is the 1st time she was told she had high cholesterol. She is advised to implement dietary changes to lower cholesterol, supported by educational materials provided during the visit. A follow-up is scheduled in three months to assess the effectiveness of dietary interventions. ASCVD score 16.4%. During the visit, we discussed the management of hypertension and hyperlipidemia. I advised the patient to continue lisinopril for blood pressure control and provided dietary recommendations to manage cholesterol levels. We agreed on a follow-up in three months to evaluate the effectiveness of these interventions. Patient Instructions: - Continue taking lisinopril 10 mg daily in the morning. - Follow the dietary guidelines provided to help lower cholesterol levels. - Schedule a follow-up appointment in three months to reassess blood pressure and cholesterol management.
[2024-09-05 09:04] VITALS: BP 132/78; PULSE 87; TEMP 36.4; O2SAT 99; BMI 25.5
== END 2024-09-05 09:28 | disposition home or self-care (01) ==
LOC: HO.HMCSH 08:51
PROVIDERS: PCP Physician Assistant Medical; Visit Provider Physician Assistant Medical
DX: I10 Essential (primary) hypertension (principal); E78.00 Pure hypercholesterolemia, unspecified; E78.5 Hyperlipidemia, unspecified

== ENCOUNTER → 2024-09-05 08:51 | Outpatient (BNVA) | payer MEDICARE, SELFPAY | PROVIDERS: PCP Physician Assistant Medical; Visit Provider Physician Assistant Medical | DX: I10 Essential (primary) hypertension (principal); E78.5 Hyperlipidemia, unspecified; E78.00 Pure hypercholesterolemia, unspecified | CPT/HCPCS: 96127; 99212 ==

== ENCOUNTER 2024-10-10 10:58 | Outpatient (REF) | payer MEDICARE, SELFPAY ==
--- OUTSIDE RECORDS SUMMARY | 2024-09-22 06:00 | XMS_ITS ---
Author Organization [facility] Address [address] [address] Care Team Providers Care Power Grader Operator Name Role Phone GURVINDER CARVER Primary Care Provider MELVIN Kilpatrick Unavailable [phone] REASON FOR VISIT HSONO/EB/THICK ENDO ON US Encounters Encounter Location Date Provider Diagnosis [facility] [address] [address] 09/22/2024 MELVIN SANDOVAL Plan Of Treatment No Information Progress Notes * FIDEL BARRERAADOB:[birth year] (74 yo F)Acc No.[id number]:09/22/2024 Patient: CHAU CHAVEZ Provider: Kemar SANDOVAL MD :1950 A ge:74 Y S ex:Female Date:09/22/2024 Address:[address] [place] [address] Pcp:GURVINDER CARVER Subjective: * Chief Complaints: * 1 . HSONO/EB/THICK ENDO ON US. * Medical History: Objective: * Vitals: Assessment: Plan: * Treatment: * Images: Billing Information: * Visit Code: * Procedure Codes: * Electronic signature of MELVIN SANDOVAL MD on 10/10/2024 at 12:13 PM EDT Sign off status: Pending * Provider: Kemar SANDOVAL MD Date: 09/22/2024 Generated for Printi ng/Faxing/eTransmitting on: 10/10/2024 12:13 PM EDT
--- NOTE | ~2024-10-10 | MM_ITS ---
EXAMINATION: DXA BONE DENSITY AXIAL HISTORY: M81.0 - Age-related osteoporosis without current pathological fracture TECHNIQUE: [employer] ([employer]) Dual energy absorptiometry (DEXA) of the lumbar spine, total left hip, and femoral neck was performed. COMPARISON: There are no prior studies for comparison. FINDINGS: The bone mineral density of the lumbar spine is 0.942 g/cm2, corresponding to a T-score of -2.0, and a Z-score of -0.2. This is indicative of osteopenia. The bone mineral density of the left total hip is 0.718 g/cm2, corresponding to a T-score of -2.3, and a Z-score of -0.6. This is indicative of osteopenia. The bone mineral density of the left femoral neck is 0.710 g/cm2, corresponding to a T-score of -2.4, and a Z-score of -0.5. This is indicative of osteopenia. FRACTURE RISK: The FRAX index suggests a risk of major osteoporotic fracture of 15.0%, and of hip fracture 3.9%. MM/XR DEXA axial skeleton IMPRESSION: Based on bone mineral density, and according to World Health Organization (WHO) criteria, the diagnosis is consistent with osteopenia. Statistically, 68% of repeat scans fall within 1 SD (+/- 0.010 g/cm2 for AP spine L1-L4) and 1 SD (+/- 0.012 g/cm2 for femur total) FRAX is a trademark of the [employer]'s [employer] Met[employer], a World Health Organization (WHO) Collaborating Center. Electronically signed by: Ian Cordero MD 10/10/2024 11:37 AM EDT
--- NOTE | ~2024-10-10 | MM_ITS ---
EXAMINATION: MM SCREENING DIGITAL BREAST TOMOSYNTHESIS, BILATERAL CLINICAL INFORMATION: Screening. Asymptomatic. COMPARISON: Mammography: Baseline. TECHNIQUE: Digital breast mammography with tomosynthesis is performed in both the craniocaudal and mediolateral oblique views along with computer-aided detection (CAD). FINDINGS: There are scattered areas of fibroglandular density (ACR BI-RADS breast composition Category b). Left: There are no significant masses, abnormal calcifications, or other abnormalities. Right: Focal asymmetry upper central to slightly inner breast middle depth. No suspicious calcifications or other abnormal findings. MM/MM tomosynthesis screening BI IMPRESSION: Additional imaging is recommended ASSESSMENT: BI-RADS BI-RADS 0 - Incomplete: Needs additional Imaging. RECOMMENDATION: 1. Additional views of the right breast. 2. Targeted ultrasound if warranted after review of the additional views. 3. Radiology department staff will contact the patient for additional imaging. Additional Imaging required This examination should not preclude the clinical evaluation of a suspicious palpable abnormality. This patient's information was entered into a reminder system with a target due date for their next mammogram. Electronically signed by: Mary Dooley DO 10/20/2024 09:56 AM EDT
== END 2024-10-10 10:59 | disposition home or self-care (01) ==
LOC: HO.MAMMO 10:58
PROVIDERS: PCP Physician Assistant Medical; Visit Provider Physician Assistant Medical
DX: Z12.31 Encounter for screening mammogram for malignant neoplasm of breast (principal); M81.0 Age-related osteoporosis without current pathological fracture
CPT/HCPCS: 77063; 77067; 77080

== ENCOUNTER → 2024-10-10 11:30 | Outpatient (BNV) | payer MEDICARE, SELFPAY | PROVIDERS: PCP Physician Assistant Medical; Visit Provider Radiology Diagnostic Radiology | DX: Z12.31 Encounter for screening mammogram for malignant neoplasm of breast (principal) | CPT/HCPCS: 77063; 77067 ==

== ENCOUNTER 2024-11-24 07:44 | Outpatient (REF) | payer MEDICARE, SELFPAY ==
--- OUTSIDE RECORDS SUMMARY | 2024-08-04 09:00 | XMS_ITS ---
Author Organization [facility] Address [address] [address] Care Team Providers Care Match Marker Name Role Phone GURVINDER CARVER Primary Care Provider MELVIN Kilpatrick Unavailable [phone] REASON FOR VISIT ULTRA - PMB Encounters Encounter Location Date Provider Diagnosis [facility] [address] [address] 08/04/2024 MELVIN SANDOVAL Plan Of Treatment No Information Progress Notes * FIDEL BARRERAADOB:[birth year] (74 yo F)Acc No.[id number]:08/04/2024 PROGRESS NOTES Patient: CHAU CHAVEZ Provider: Kemar SANDOVAL MD :1950 A ge:73 Y S ex:Female Date:08/04/2024 Address:[address] [place] [address] Pcp:GURVINDER CARVER Subjective: * Chief Complaints: * 1 . ULTRA - PMB. * Medical History: Objective: * Vitals: Assessment: Plan: * Treatment: * Images: Billing Information: * Visit Code: * Procedure Codes: * Electronic signature of MELVIN SANDOVAL MD on 11/24/2024 at 07:46 AM EDT Sign off status: Pending * Provider: Kemar SANDOVAL MD Date: 08/04/2024 Generated for Printi ng/Faelsag/eTransmitting on: 0 11/24/2024 07:46 AM EDT
--- OUTSIDE RECORDS SUMMARY | 2024-09-22 06:00 | XMS_ITS ---
Author Organization [facility] [employer] [facility] Address [address] [address] Care Team Providers Care Pan Washer Hand Name Role Phone GURVINDER CARVER Primary Care Provider MELVIN Kilpatrick Unavailable [phone] REASON FOR VISIT HSONO/EB/THICK ENDO ON US Encounters Encounter Location Date Provider Diagnosis [facility] [address] [address] 09/22/2024 MELVIN SANDOVAL Plan Of Treatment No Information Progress Notes * FIDEL BARRERAADOB:[birth year] (74 yo F)Acc No.[id number]:09/22/2024 Patient: CHAU CHAVEZ Provider: Kemar SANDOVAL MD :1950 A ge:74 Y S ex:Female Date:09/22/2024 Address:[address] [place] [address] Pcp:GURVINDER CARVER Subjective: * Chief Complaints: * 1 . HSONO/EB/THICK ENDO ON US. * Medical History: Objective: * Vitals: Assessment: Plan: * Treatment: * Images: Billing Information: * Visit Code: * Procedure Codes: * Electronic signature of MELVIN SANDOVAL MD on 11/24/2024 at 07:46 AM EDT Sign off status: Pending * Provider: Kemra SANDOVAL MD Date: 09/22/2024 Generated for Printi ng/Faxing/eTransmitting on: 0 11/24/2024 07:46 AM EDT
--- NOTE | ~2024-11-24 | US_ITS ---
EXAMINATION: MM DIAGNOSTIC DIGITAL BREAST TOMOSYNTHESIS, RIGHT Limited ultrasound. CLINICAL INFORMATION: Call back from screening for focal asymmetry in the upper central right breast middle to posterior depth. COMPARISON: Mammography: Priors on PACS. TECHNIQUE: Digital breast tomosynthesis is performed in both the craniocaudal and mediolateral oblique views along with computer-aided detection (CAD). Synthesized 2D images are generated from the tomosynthesis. FINDINGS: There are scattered areas of fibroglandular density (ACR BI-RADS breast composition Category b). Focal asymmetry persists in the upper central breast middle to posterior depth is a circumscribed oval mass. No suspicious calcifications or other abnormal findings. Targeted color Doppler ultrasound from 11-1 o'clock demonstrates a ill-defined hypoechoic oval solid mass versus complicated cyst at 12:00 7 cm from the nipple measuring 5 x 4 x 4 mm this is a likely correlate for the focal asymmetry on mammography. US/US breast RT limited mamm only IMPRESSION: Focal asymmetry in the upper central breast with faint ill-defined sonographic correlate at 12:00 7 cm from the nipple. Solid mass versus complicated cyst. Recommend 6 month follow-up ultrasound and mammography for further evaluation of stability. ASSESSMENT: BI-RADS BI-RADS 3 - Probably benign finding(s) - 6 month follow-up suggested RECOMMENDATION: 6 Month F/U Results were provided to the patient at time of visit by the technologist. This patient's information was entered into a reminder system with a target due date for their next mammogram. Electronically signed by: Mary Dooley DO 11/24/2024 09:48 AM EDT
--- OUTSIDE RECORDS SUMMARY | 2024-11-24 07:47 | XMS_ITS | Patient Health Record ---
Author Organization [employer] [facility] Address [address] [place] [address] Care Team Providers Care Equipment Operator Wage Hand Name Role Phone GURVINDER CARVER Primary Care Provider MELVIN Kilpatrick Unavailable [phone] Allergies No Known Allergies Results Component Value Reference Range Notes SURGICAL PATHOLOGY Reviewed date:09/26/2024 07:12:47 PM Interpretation: Performing Lab:Testing performed or reported by [facility], a Service of [facility], [address] [place] [address] Dequan Maxwell MD, Cleaning Supervisor [facility]# [id number] Notes/Report: Patient Name: CHAU BARRERA Lab Patient : 1950 (Age: 74) Collection Date: 09/22/2024 Accession Date: 09/22/2024 Sign Out Date: 09/26/2024 Tissue Source: 1:EMB Final Diagnosis: Endometrium, biopsy: - Extremely scant atrophic endometrium (see note). - Endocervical glandular and squamous mucosa without histopathologic change. Note: The scant quantity of tissue received may not be bilingual call center representative of the endometrium. Primary Pathologist:Vicente Hamilton M.D. electronically signed out by: Vicente Hamilton M.D. / JAK Clinical History: 74-year-old female, AUB, thickened endometrium Gross Description: Labeled EM biopsy (as labeled on bottle) . Received in formalin is a 1.0 x 1.0 x 0.2 cm aggregate of clear mucus. The formalin is filtered and the specimen is submitted in toto in 1 cassette, multiple pieces, x 2. (KD)* As of May 22, 2023, the specimen processing and staining is performed at [facility], [address] [place] [address] (CLIA#[id number]). Its performance characteristics determined by [facility]. Vishnu Zapien M.D. Cleaning Supervisor of Surgical Pathology, Lianne Jimenes M.D. Cleaning Supervisor Cytopathology Phone #: [phone], On-Call Pathologist: [id number] Reason For Referral No Information Medications Medication SIG (Take, Route, Fr equency, Duration) Notes Start Date End Date Status Estradiol 0.1 MG/GM apply topically to p erineum nightly 06/29/2024 Active valACYclovir HCl 1 GM 1 tablet Orally Once a day Active miSOPROStol 200 MCG as directed Orally 8 -12 hrs prior to appointment; Duration: 1 days 08/08/2024 Active Social History Tobacco Use: Social History [...] Problem Status W/U Status Risk Notes Problem Postmenopausal bleeding (07861071) Postmenopausal bleeding (N95.0) Active confirmed Problem Malignant melanoma of trunk (385846122) 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) Active confirmed Problem Abnormal uterine bleeding (04847575991143) Abnormal uterine and vaginal bleeding, unspecified (N93.9) Active confirmed Vital Signs Temperature 97.5 degrees Fahrenheit 06/29/2024 PT WILL GO TO [facility] IN [place] FOR REPEAT BP CK THIS AFTERNOON AND CALL US WITH OUTCOME Blood pressure diastolic 94 mm Hg 06/29/2024 PT WILL GO TO [facility] IN [place] FOR REPEAT BP CK THIS AFTERNOON AND CALL US WITH OUTCOME Height 61 in 06/29/2024 PT WILL GO TO [facility] IN [place] FOR REPEAT BP CK THIS AFTERNOON AND CALL US WITH OUTCOME Blood pressure systolic 220 mm Hg 06/29/2024 PT WILL GO TO [facility] IN [place] FOR REPEAT BP CK THIS AFTERNOON AND CALL US WITH OUTCOME Weight 138 lbs 06/29/2024 PT WILL GO TO [facility] IN [place] FOR REPEAT BP CK THIS AFTERNOON AND CALL US WITH OUTCOME BMI 26.07 kg/m2 06/29/2024 PT WILL GO TO [facility] IN [place] FOR REPEAT BP CK THIS AFTERNOON AND CALL US WITH OUTCOME Encounters Encounter Location Date Provider Diagnosis [facility] [address] [place] [phone] 08/04/2024 MELVIN SANDOVAL [facility] [address] [address] 06/29/2024 MELVIN SANDOVAL Abnormal uterine and vaginal bleeding, unspecified N93.9 and Elevated blood-pressure reading, without diagnosis of hypertension R03.[address] [place] [phone] 09/22/2024 MELVIN SANDOVAL Abnormal uterine and vaginal bleeding, unspecified N93.9 and Postmenopausal bleeding N95.[address] [place] [phone] 06/29/2024 MELVIN SANDOVAL [facility] [address] [address] 08/08/2024 MELVIN SANDOVAL Assessments Encounter Date Diagnosis (ICD [...] and to call us with the results. 09/22/2024 Abnormal uterine and vaginal bleeding, unspecified (ICD-10 - N93.9) 09/22/2024 Postmenopausal bleeding (ICD-10 - N95.0) Plan Of Treatment Pending Test Test Name Order Date ULTRASOUND: PELVIC W/TRANSVAGINAL 2024 Insurance Providers Payer Name Payer Address Payer Phone Subscriber Number Group Number Insured Name Patient Relationship to Insured Coverage Start Date Coverage End Date [facility] [address] [address] [place] [address] [id number] CHAU BARRERA Self - patient is the insured Medical (General) History Medical History History ICD Code Malignant melanoma of other part of trun k C43.59 Surgical History Surgery Date(Month/Year) Excision of melanoma from abdomen 2000 Hospitalization History Reason Date(Month/Year) childbirth
== END 2024-11-24 07:45 | disposition home or self-care (01) ==
LOC: HO.MAMMO 07:44
PROVIDERS: PCP Physician Assistant Medical; Visit Provider Physician Assistant Medical
DX: N64.89 Other specified disorders of breast (principal)
CPT/HCPCS: 76642; 77061; 77065

== ENCOUNTER → 2024-11-24 08:00 | Outpatient (BNV) | payer MEDICARE, SELFPAY | PROVIDERS: PCP Physician Assistant Medical; Visit Provider Internal Medicine | DX: R92.8 Other abnormal and inconclusive findings on diagnostic imaging of breast (principal) | CPT/HCPCS: 76642; 77065; G0279 ==

== ENCOUNTER 2024-12-12 08:50 | Outpatient (AMB) | payer MEDICARE, SELFPAY ==
--- OUTSIDE RECORDS SUMMARY | 2024-08-04 09:00 | XMS_ITS ---
Author Organization [facility] Address [address] [address] Care Team Providers Care Apprentice Instrument Technician Name Role Phone GURVINDER CARVER Primary Care Provider MELVIN Kilpatrick Unavailable [phone] REASON FOR VISIT ULTRA - PMB Encounters Encounter Location Date Provider Diagnosis [facility] [address] [address] 08/04/2024 MELVIN SANDOVAL Plan Of Treatment No Information Progress Notes * FIDEL BARRERAADOB:[birth year] (74 yo F)Acc No.[id number]:08/04/2024 PROGRESS NOTES Patient: CHAU CHAVEZ Provider: Kemar SANDOVAL MD :1950 A ge:73 Y S ex:Female Date:08/04/2024 Address:[address] [place] [address] Pcp:GURVINDER CARVER Subjective: * Chief Complaints: * 1 . ULTRA - PMB. * Medical History: Objective: * Vitals: Assessment: Plan: * Treatment: * Images: Billing Information: * Visit Code: * Procedure Codes: * Electronic signature of MELVIN SANDOVAL MD on 12/12/2024 at 09:21 AM EDT Sign off status: Pending * Provider: Kemar SANDOVAL MD Date: 08/04/2024 Generated for Printi ng/Faxing/eTransmitting on: 0 12/12/2024 09:21 AM EDT
--- OUTSIDE RECORDS SUMMARY | 2024-09-22 06:00 | XMS_ITS ---
Author Organization [facility] Address [address] [address] Care Team Providers Care Claims Vice President Name Role Phone GURVINDER CARVER Primary Care Provider MELVIN Kilpatrick Unavailable [phone] REASON FOR VISIT HSONO/EB/THICK ENDO ON US Encounters Encounter Location Date Provider Diagnosis [facility] [address] [address] 09/22/2024 MELVIN SANDOVAL Plan Of Treatment No Information Progress Notes * FIDEL BARRERAADOB:[birth year] (74 yo F)Acc No.[id number]:09/22/2024 Patient: CHAU CHAVEZ Provider: Kemar SANDOVAL MD :1950 A ge:74 Y S ex:Female Date:09/22/2024 Address:[address] [place] [address] Pcp:GURVINDER CARVER Subjective: * Chief Complaints: * 1 . HSONO/EB/THICK ENDO ON US. * Medical History: Objective: * Vitals: Assessment: Plan: * Treatment: * Images: Billing Information: * Visit Code: * Procedure Codes: * Electronic signature of MELVIN SANDOVAL MD on 12/12/2024 at 09:21 AM EDT Sign off status: Pending * Provider: Kemar SANDOVAL MD Date: 09/22/2024 Generated for Printi ng/Faxing/eTransmitting on: 12/12/2024 09:21 AM EDT
[2024-12-12 08:53] VITALS: BP 188/86; PULSE 79; RESP 20; TEMP 35.8; O2SAT 98; BMI 24.1
--- NOTE | 2024-12-12 08:53 | MHC.PC.OV ---
Vital Signs 12/12/24 08:53 Height 5 ft 1 in Weight 127 lb 6 oz BMI 24.1 BP 188/86 H Blood Pressure Location Rt brachial Position Sitting Respiration 20 Pulse 79 Pulse Source Pulse Oximeter Temp 96.4 F L Temp Source Temporal Artery Scan Pulse Oximetry (%) 98 Oxygen Delivery Method Room Air Intake Visit Reasons: physical - see comments Intake Note: no issues just would like to review blood work Accompanied by: Self / Same As Patient Allergies No Known Allergies Allergy (Verified 12/12/24 09:27) Medication List - Last Reconciled 12/12/24 by Gill Mcmillan PA-C lisinopril 20 mg PO DAILY valacyclovir 4,000 mg PO ONCE Tobacco use date assessed: 12/12/24 Fall risk assessment: No Falls in past year Last assessed Fall Risk: 12/12/24 Dental Screening Dental Screen Date: 12/12/24 Did you have a dental visit in the last 12 months?: Yes Did you have a dental problem in the last 6 months where you did not have access to dental care?: No Was dental information given to patient?: Patient has dentist HPI physical - see comments HPI Details The patient is a 74-year-old female presenting for a physical examination and management of chronic conditions. The patient has a history of essential hypertension, currently managed with lisinopril 10 mg daily. Recently, her blood pressure readings at home have been elevated, with occasional readings reaching 140 mmHg systolic. During today's visit, her blood pressure was noted to be higher than usual, prompting a discussion about increasing her lisinopril dosage to 20 mg daily. The patient also has hyperlipidemia, with a total cholesterol level of 231 mg/dL and LDL cholesterol at 138 mg/dL, which are above the desired levels. She is not currently on any cholesterol-lowering medication and prefers to manage her cholesterol through lifestyle modifications, including weight loss and daily walking. The patient has been diagnosed with osteopenia, confirmed by a bone scan conducted on October 10, 2024. She is currently taking vitamin D and calcium supplements to manage this condition. A recent mammogram indicated the presence of a breast cyst, described as a complicated cyst versus a solid mass. A follow-up ultrasound and mammogram are scheduled in six months to monitor the cyst's stability. The patient has a colonoscopy scheduled for February, following a delay in the referral process. Social History - Exercise: The patient walks daily. - Living Situation: The patient is a and lives with her son. [facility] Medical History (Updated 12/12/24 @ 09:37 by Gill Mcmillan PA-C) Colon cancer screening Annual physical exam History of mammogram (~11/24/24) Breast mass, right Osteopenia (~10/10/24) Hyperlipidemia Pure hypercholesterolemia, unspecified Establishing care with new doctor, encounter for Hypertension Family History Father Lung cancer Mother No problems noted. Social History Housing: House Alcohol intake: current Alcohol intake frequency: holidays/special occasions only Alcohol type: wine Patient Tobacco Use Status: Never used Tobacco e-Cigarette/Vaping Use: Never Used service: No Current occupational status: retired Cognitive needs: No Hearing needs: No Vision needs: Yes (reading glasses/cheaters) Questionnaire PHQ-9 Over the last 2 weeks, how often have you been bothered by any of the following problems? 1. Little interest or pleasure in doing things: not at all 2. Feeling down, depressed, or hopeless: not at all 3. Trouble falling or staying asleep, or sleeping too much: not at all 4. Feeling tired or having little energy: not at all 5. Poor appetite or overeating: not at all 6. Feeling bad about yourself - or that you are a failure or have let yourself or your family down: not at all 7. Trouble concentrating on things, such as reading the newspaper or watching television: not at all 8. Moving or speaking so slowly that other people could have noticed. Or the opposite - being so fidgety or restless that you have been moving around a lot more than usual: not at all 9. Thoughts that you would be better off or of hurting yourself in some way: not at all Total score: 0 Depression Screening Interpretation: Negative Depression Screening Done: Yes 54614 - PHQ-9 Billing: Yes Source: Developed by Drs. Ian Gaytan, Gypsy Rodriguez, Jose Mayo and colleagues, with an educational gilberto from [employer]. Thrive Questionnaire Date Thrive assessed: 12/12/24 I am a: Patient What is your living situation today?: I have a steady place to live Within the past 12 months, did the food you bought not last and you didn't have the money to get more?: Never true Within the past 12 months, did you worry whether your food would run out before you got money to buy more?: Never true Do you have trouble paying for medicines?: No Do you have trouble getting transportation to medical appointments?: No Do you have trouble paying your heating and electricity bill?: No Do you have trouble taking care of your child, family member or friend?: No Do you have trouble with day-to-day activities such as bathing, preparing meals, shopping, managing finances, etc.?: No Are you currently unemployed and looking for a job?: No Are you interested in more education?: No Please select the resources that you would like help with: None THRIVE Score: 0 BOBBY-7 AMB Questionnaire BOBBY-7 Date BOBBY - 7 assessed: 12/12/24 Feeling nervous, anxious, or on edge: 0 = Not at all Not being able to stop or control worryin = Not at all Worrying too much about different things: 0 = Not at all Trouble relaxin = Not at all Being so restless that it is hard to sit still: 0 = Not at all Becoming easily annoyed or irritable: 0 = Not at all Feeling afraid as if something awful might happen: 0 = Not at all Total BOBBY-7 score (0-4 normal; 5-9 mild; 10-14 moderate; 15-21 severe): 0 Source: Developed by Drs. Ian Gaytan, Gypsy Rodriguez, Jose Mayo and colleagues, with an educational gilberto from [employer]. BOBBY-7 Assessment Billing BOBBY-7 Assessment Tool: BOBBY-7 Assessment 18956 Review of Systems Const Details: - Cardiovascular: Denies chest pain, orthopnea, or syncope. - Respiratory: Denies dyspnea, cough, or wheezing. - Gastrointestinal: Denies black or bloody stools, unintentional weight loss. - Neurological: Denies recent falls, able to perform activities of daily living independently. All systems reviewed & are unremarkable except as noted in HPI and below Physical exam (Primary Care) Vital Signs: Last Vital Signs Temp 96.4 F L 12/12/24 08:53 Pulse 79 12/12/24 08:53 Resp 20 12/12/24 08:53 BP 188/86 H 12/12/24 08:53 Pulse Ox 98 12/12/24 08:53 Oxygen Delivery Method Room Air 12/12/24 08:53 Care Plan Goal for BP management: <140/90 at Goal BMI result Body Mass Index 24.1 normal bmi Tobacco/Smoking Status: Tobacco use Status Tobacco use date assessed 12/12/24 12/12/24 08:59 Patient Tobacco Use Status Never used Tobacco 12/12/24 08:53 e-Cigarette/Vaping Use Never Used 12/12/24 08:53 PHQ-9: PHQ-9 Score PHQ-9: Total score 0 12/12/24 08:59 Depression Screening Interpretation: Negative Thrive Assessment: Date of Thrive Assessment Date Thrive assessed 12/12/24 12/12/24 08:59 Const Other: Appearance: Alert. Oriented X3. No acute distress. Head: Normal external exam. Normocephalic. Atraumatic. Eyes: Pupils are equal, round, and reactive to light. Extraocular movements intact. Conjunctiva and sclera normal. Eyelids normal. Ears: External auditory canal normal. Tympanic membranes normal. Throat: Pharynx normal. Uvula midline. Moist mucous membranes. Neck: Normal inspection. Neck supple. Full range of motion. No adenopathy. Thyroid Normal. No meningeal signs. No neck mass noted. Cardiovascular: Normal heart rate and rhythm. Heart sound normal. No murmurs noted. Pulses normal throughout. Respiratory: No respiratory distress. Painless inspiration. Breath sounds normal. No wheezes/rales/rhonchi noted. Chest nontender. No accessory muscle usage noted or decreased air movement noted. Abdomen: Soft and nontender. Bowel sounds normal in all 4 quadrants. No distention noted. No organomegaly noted. No visible injury noted. Back: No costovertebral angle tenderness. Full range of motion noted. Skin: Skin warm and dry. Normal skin color. Normal skin turgor. No rashes/lesions/lacerations noted. Extremities: No lower extremity edema. Extremities exhibit normal range of motion. Extremities nontender. Neuro: Oriented X 3. No motor deficit. No sensory deficit. Reflexes normal. Results Reviewed Results Reviewed: - Labs: CBC normal, sodium 138 mmol/L, glucose 108 mg/dL, hemoglobin A1c 5.4%, triglycerides 99 mg/dL, total cholesterol 231 mg/dL, LDL cholesterol 138 mg/dL. - Imaging: Mammogram showed a complicated breast cyst, follow-up recommended in six months. - Imaging: Bone scan indicated osteopenia. Coding Level of Care Code Est Pt Level 4 (41686) Est Pt Prev Care >65y(21360) Diagnoses Annual physical exam Z00.00 Hypertension I10 Osteopenia M85.80 Breast mass, right N63.10 Pure hypercholesterolemia, unspecified E78.00 Hyperlipidemia E78.5 Colon cancer screening Z12.11 Additional Codes BOBBY-7 Assessment Billing - BOBBY-7 Assessment Tool: BOBBY-7 Assessment 16465 ([id number]) PHQ-9 - 84376 - PHQ-9 Billing: Yes ([id number]) Assessment & Plan Assessment & Plan (1) Annual physical exam: Code(s): Z00.00 - Encounter for general adult medical examination without abnormal findings Category: Medical (2) Hypertension: Code(s): I10 - Essential (primary) hypertension Category: Medical Plan: The patient's blood pressure has been elevated at home, with occasional readings reaching 140 mmHg systolic. During today's visit, her blood pressure was noted to be higher than usual, prompting a discussion about increasing her lisinopril dosage to 20 mg daily. The patient will monitor her blood pressure at home and return in one month for reassessment. (3) Osteopenia: Onset Date: ~10/10/24 Code(s): M85.80 - Other specified disorders of bone density and structure, unspecified site Category: Medical Plan: The patient has been diagnosed with osteopenia, confirmed by a bone scan conducted on October 10, 2024. She is currently taking vitamin D and calcium supplements to manage this condition. No additional medication is required at this time, and the patient will continue with her current supplementation regimen. (4) Breast mass, right: Comment: IMPRESSION: Focal asymmetry in the upper central breast with faint ill-defined sonographic correlate at 12:00 7 cm from the nipple. Solid mass versus complicated cyst. Recommend 6 month follow-up ultrasound and mammography for further evaluation of stability. Code(s): N63.10 - Unspecified lump in the right breast, unspecified quadrant Category: Medical Plan: A recent mammogram indicated the presence of a breast cyst, described as a complicated cyst versus a solid mass. A follow-up ultrasound and mammogram are scheduled in six months to monitor the cyst's stability. (5) Pure hypercholesterolemia, unspecified: Code(s): E78.00 - Pure hypercholesterolemia, unspecified Category: Medical Plan: The patient has elevated cholesterol levels, with a total cholesterol of 231 mg/dL and LDL cholesterol at 138 mg/dL. She is not currently on any cholesterol-lowering medication and prefers to manage her cholesterol through lifestyle modifications, including weight loss and daily walking. A follow-up lipid panel will be considered in six months to evaluate the effectiveness of lifestyle changes. (6) Hyperlipidemia: Code(s): E78.5 - Hyperlipidemia, unspecified Category: Medical Plan: The patient has elevated cholesterol levels, with a total cholesterol of 231 mg/dL and LDL cholesterol at 138 mg/dL. She is not currently on any cholesterol-lowering medication and prefers to manage her cholesterol through lifestyle modifications, including weight loss and daily walking. A follow-up lipid panel will be considered in six months to evaluate the effectiveness of lifestyle changes. (7) Colon cancer screening: Code(s): Z12.11 - Encounter for screening for malignant neoplasm of colon Category: Medical Plan: Referral placed at last visit patient has colon cancer screening assessment with gastroenterology on 02/23/2025. Plan Plan Patient was informed and verbally consented to the use of an ambient scribe for clinic note documentation during this visit. 1. Essential Hypertension The patient's blood pressure has been elevated at home, with occasional readings reaching 140 mmHg systolic. During today's visit, her blood pressure was noted to be higher than usual, prompting a discussion about increasing her lisinopril dosage to 20 mg daily. The patient will monitor her blood pressure at home and return in one month for reassessment. 2. Hyperlipidemia The patient has elevated cholesterol levels, with a total cholesterol of 231 mg/dL and LDL cholesterol at 138 mg/dL. She is not currently on any cholesterol-lowering medication and prefers to manage her cholesterol through lifestyle modifications, including weight loss and daily walking. A follow-up lipid panel will be considered in six months to evaluate the effectiveness of lifestyle changes. 3. Osteopenia The patient has been diagnosed with osteopenia, confirmed by a bone scan conducted on October 10, 2024. She is currently taking vitamin D and calcium supplements to manage this condition. No additional medication is required at this time, and the patient will continue with her current supplementation regimen. 4. Breast Cyst A recent mammogram indicated the presence of a breast cyst, described as a complicated cyst versus a solid mass. A follow-up ultrasound and mammogram are scheduled in six months to monitor the cyst's stability. During the visit, we discussed the patient's elevated blood pressure readings and the plan to increase her lisinopril dosage to 20 mg daily. We also reviewed her cholesterol levels and the decision to continue managing them through lifestyle changes, with a follow-up lipid panel in six months. The patient was informed about her osteopenia diagnosis and the importance of continuing vitamin D and calcium supplementation. We discussed the breast cyst findings and the need for a follow-up ultrasound and mammogram in six months to monitor stability. Orders: Orders Influenza [id number] Immunization Today Z23 - Encounter for immunization Medications: New Fluarix (PF) (flu vac ts (6mos up)-PF) 0.5 mL IM ONCE 0.5 mL 0RF NS Z23 - Encounter for immunization Discontinued lisinopril Discontinued Reason: Doctor's Order 10 mg PO DAILY 90 tabs 1RF I10 - Essential (primary) hypertension Patient Instructions: - Monitor blood pressure at home and record readings. - Take lisinopril 20 mg daily as prescribed. - Continue lifestyle modifications for cholesterol management, including weight loss and daily walking. - Continue taking vitamin D and calcium supplements for osteopenia. - Attend follow-up ultrasound and mammogram in six months for breast cyst monitoring. - Return for follow-up appointment in one month to reassess blood pressure management.
--- OUTSIDE RECORDS SUMMARY | 2024-12-12 09:22 | XMS_ITS | Patient Health Record ---
Author Organization Total [employer] [facility] Address [address] [facility] [address] [place] [address] Care Team Providers Care Acoustics Teacher Name Role Phone GURVINDER CARVER Primary Care Provider MELVIN Kilpatrick Unavailable [phone] Allergies No Known Allergies Results Component Value Reference Range Notes SURGICAL PATHOLOGY Reviewed date:09/26/2024 07:12:47 PM Interpretation: Performing Lab:Testing performed or reported by [facility], a Service of [facility], [address] [place] [address] Dequan Maxwell MD, Student Support Advisor [facility]# [id number] Notes/Report: Patient Name: CHAU BARRERA Lab Patient : 1950 (Age: 74) Collection Date: 09/22/2024 Accession Date: 09/22/2024 Sign Out Date: 09/26/2024 Tissue Source: 1:EMB Final Diagnosis: Endometrium, biopsy: - Extremely scant atrophic endometrium (see note). - Endocervical glandular and squamous mucosa without histopathologic change. Note: The scant quantity of tissue received may not be sales representative womens health of the endometrium. Primary Pathologist:Vicente Hamilton M.D. [...] specimen processing and staining is performed at [facility], [address] [place] [address] (CLIA#[id number]). Its performance characteristics determined by [facility]. Vishnu Zapien M.D. Student Support Advisor of Surgical Pathology, Lianne Jimenes M.D. 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 Problem Abnormal uterine bleeding ([id number]) Abnormal uterine and vaginal bleeding, unspecified (N93.9) Active confirmed Vital Signs Temperature 97.5 degrees Fahrenheit 06/29/2024 PT WILL GO TO [facility] IN [place] FOR REPEAT BP CK THIS AFTERNOON AND CALL US WITH OUTCOME Blood pressure diastolic 94 mm Hg 06/29/2024 PT WILL GO TO [facility] IN [place] FOR REPEAT BP CK THIS AFTERNOON AND CALL US WITH OUTCOME Height 61 in 06/29/2024 PT WILL GO TO [facility] IN [place] FOR REPEAT BP CK THIS AFTERNOON AND CALL US WITH OUTCOME Blood pressure systolic 220 mm Hg 06/29/2024 PT WILL GO TO [facility] IN [place] FOR REPEAT BP CK THIS AFTERNOON AND CALL US WITH OUTCOME Weight 138 lbs 06/29/2024 PT WILL GO TO [facility] IN [place] FOR REPEAT BP CK THIS AFTERNOON AND CALL US WITH OUTCOME BMI 26.07 kg/m2 06/29/2024 PT WILL GO TO [facility] IN [place] FOR REPEAT BP CK THIS AFTERNOON AND CALL US WITH OUTCOME Encounters Encounter Location Date Provider Diagnosis Total [address] [place] [phone] 08/04/2024 MELVIN SANDOVAL Total [address] [address] 06/29/2024 MELVIN SANDOVAL Abnormal uterine and vaginal bleeding, unspecified N93.9 and Elevated blood-pressure reading, without diagnosis of hypertension R03.[address] [place] [address] 09/22/2024 MELVIN SANDOVAL Abnormal uterine and vaginal bleeding, unspecified N93.9 and Postmenopausal bleeding N95.[address] [place] [address] 06/29/2024 MELVIN SANDOVAL Total [address] [address] 08/08/2024 MELVIN SANDOVAL Assessments Encounter Date Diagnosis [...] Insured Coverage Start Date Coverage End Date [employer] [facility] MEDICARE SOLUTIONS [address] [address] [place] [address] [id number] CHAU BARRERA Self - patient is the insured Medical (General) History Medical History History ICD Code Malignant melanoma of other part of trun k C43.59 Surgical History Surgery Date(Month/Year) Excision of melanoma from abdomen 2000 Hospitalization History Reason Date(Month/Year) childbirth
== END 2024-12-12 09:24 | disposition home or self-care (01) ==
LOC: HO.HMCSH 08:50
PROVIDERS: PCP Physician Assistant Medical; Visit Provider Physician Assistant Medical
DX: Z00.00 Encounter for general adult medical examination without abnormal findings (principal); I10 Essential (primary) hypertension; M85.80 Other specified disorders of bone density and structure, unspecified site; N63.10 Unspecified lump in the right breast, unspecified quadrant; E78.00 Pure hypercholesterolemia, unspecified; E78.5 Hyperlipidemia, unspecified; Z12.11 Encounter for screening for malignant neoplasm of colon; Z23 Encounter for immunization

== ENCOUNTER → 2024-12-12 08:50 | Outpatient (BNVA) | payer MEDICARE, SELFPAY | PROVIDERS: PCP Physician Assistant Medical; Visit Provider Physician Assistant Medical | DX: Z00.00 Encounter for general adult medical examination without abnormal findings (principal); I10 Essential (primary) hypertension; M85.88 Other specified disorders of bone density and structure, other site; N63.10 Unspecified lump in the right breast, unspecified quadrant; E78.00 Pure hypercholesterolemia, unspecified; Z28.89 Immunization not carried out for other reason; Z79.899 Other long term (current) drug therapy | CPT/HCPCS: 90471; 96127; 99212; 99397 ==

== ENCOUNTER 2025-01-09 09:52 | Outpatient (AMB) | payer MEDICARE, SELFPAY ==
--- OUTSIDE RECORDS SUMMARY | 2024-08-04 09:00 | XMS_ITS ---
Author Organization [facility] Address [address] [address] Care Team Providers Care Hotel Superintendent Name Role Phone GURVINDER CARVER Primary Care Provider MELVIN Kilpatrick Unavailable [phone] REASON FOR VISIT ULTRA - PMB Encounters Encounter Location Date Provider Diagnosis [facility] [address] [address] 08/04/2024 MELVIN SANDOVAL Plan Of Treatment No Information Progress Notes * FIDEL BARRERAADOB:[birth year] (74 yo F)Acc No.[id number]:08/04/2024 PROGRESS NOTES Patient: CHAU CHAVEZ Provider: Kemar SANDOVAL MD :1950 A ge:73 Y S ex:Female Date:08/04/2024 Address:[address] [place] [address] Pcp:GURVINDER CARVER Subjective: * Chief Complaints: * 1 . ULTRA - PMB. * Medical History: Objective: * Vitals: Assessment: Plan: * Treatment: * Images: Billing Information: * Visit Code: * Procedure Codes: * Electronic signature of MELVIN SANDOVAL MD on 01/09/2025 at 11:33 AM EDT Sign off status: Pending * Provider: Kemar SANDOVAL MD Date: 08/04/2024 Generated for Printi ng/Faelsag/eTransmitting on: 1 11:33 AM EDT
--- OUTSIDE RECORDS SUMMARY | 2024-09-22 06:00 | XMS_ITS ---
Author Organization [facility] Address [address] [address] Care Team Providers Care Head Of Sales And Marketing Name Role Phone GURVINDER CARVER Primary Care Provider MELVIN Kilpatrick Unavailable [phone] REASON FOR VISIT HSONO/EB/THICK ENDO ON US Encounters Encounter Location Date Provider Diagnosis [facility] [address] [address] 09/22/2024 MELVIN SANDOVAL Plan Of Treatment No Information Progress Notes * FIDEL BARRERAADOB:[birth year] (74 yo F)Acc No.[id number]:09/22/2024 Patient: CHAU CHAVEZ Provider: Kemar SANDOVAL MD :1950 A ge:74 Y S ex:Female Date:09/22/2024 Address:[address] [place] [address] Pcp:GURVINDER CARVER Subjective: * Chief Complaints: * 1 . HSONO/EB/THICK ENDO ON US. * Medical History: Objective: * Vitals: Assessment: Plan: * Treatment: * Images: Billing Information: * Visit Code: * Procedure Codes: * Electronic signature of MELVIN SANDOVAL MD on 01/09/2025 at 11:33 AM EDT Sign off status: Pending * Provider: Kemar SANDOVAL MD Date: 0 09/22/2024 Generated for Printi ng/Faxing/eTransmitting on: 1 11:33 AM EDT
[2025-01-09 10:12] VITALS: BP 135/87; PULSE 100; RESP 16; TEMP 36.6; O2SAT 99; BMI 23.4
--- NOTE | 2025-01-09 10:12 | MHC.PC.OV ---
Vital Signs 01/09/25 10:12 Height 5 ft 2 in Weight 128 lb BMI 23.4 BP 135/87 Blood Pressure Location Rt brachial Position Sitting Respiration 16 Pulse 100 Pulse Source Pulse Oximeter Temp 97.8 F Temp Source Temporal Artery Scan Pulse Oximetry (%) 99 Oxygen Delivery Method Room Air Intake Visit Reasons: 1 month follow up Ambulatory Care Coordinator Required: No Accompanied by: Self / Same As Patient Allergies No Known Allergies Allergy (Verified 01/09/25 10:42) Medication List - Last Reconciled 01/09/25 by Gill Mcmillan PA-C lisinopril 20 mg PO DAILY valacyclovir 4,000 mg PO ONCE Tobacco use date assessed: 12/12/24 Dental Screening Dental Screen Date: 12/12/24 HPI 1 month follow up HPI Details The patient is a 74-year-old female presenting for a follow-up visit for hypertension management. She is currently taking lisinopril 20 mg, which was recently increased from 10 mg. Her home blood pressure readings are generally good, with the highest at 140/87 mmHg, a recent reading of 135/87 mmHg, and some lower readings around 109/80's mmHg. The patient reports having a normal BMI and walks every day. 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 Social history - Exercise: The patient reports she walks every day. [facility] Medical History Heart murmur Colon cancer screening Annual physical exam History of mammogram (~11/24/24) Breast mass, right Osteopenia (~10/10/24) Hyperlipidemia Pure hypercholesterolemia, unspecified Establishing care with new doctor, encounter for Hypertension Family History Father Lung cancer Mother No problems noted. Social History Housing: House Alcohol intake: current Alcohol intake frequency: holidays/special occasions only Alcohol type: wine Patient Tobacco Use Status: Never used Tobacco e-Cigarette/Vaping Use: Never Used service: No Current occupational status: retired Cognitive needs: No Hearing needs: No Vision needs: Yes (reading glasses/cheaters) Questionnaire PHQ-9 Over the last 2 weeks, how often have you been bothered by any of the following problems? 1. Little interest or pleasure in doing things: not at all 2. Feeling down, depressed, or hopeless: not at all 3. Trouble falling or staying asleep, or sleeping too much: not at all 4. Feeling tired or having little energy: not at all 5. Poor appetite or overeating: not at all 6. Feeling bad about yourself - or that you are a failure or have let yourself or your family down: not at all 7. Trouble concentrating on things, such as reading the newspaper or watching television: not at all 8. Moving or speaking so slowly that other people could have noticed. Or the opposite - being so fidgety or restless that you have been moving around a lot more than usual: not at all 9. Thoughts that you would be better off or of hurting yourself in some way: not at all Total score: 0 Depression Screening Interpretation: Negative Depression Screening Done: Yes 54229 - PHQ-9 Billing: Yes Source: Developed by Drs. Ian Gaytan, Gypsy Rodriguez, Jose Mayo and colleagues, with an educational gilberto from [employer]. Thrive Questionnaire Date Thrive assessed: 12/12/24 I am a: Patient What is your living situation today?: I have a steady place to live Within the past 12 months, did the food you bought not last and you didn't have the money to get more?: Never true Within the past 12 months, did you worry whether your food would run out before you got money to buy more?: Never true Do you have trouble paying for medicines?: No Do you have trouble getting transportation to medical appointments?: No Do you have trouble paying your heating and electricity bill?: No Do you have trouble taking care of your child, family member or friend?: No Do you have trouble with day-to-day activities such as bathing, preparing meals, shopping, managing finances, etc.?: No Are you currently unemployed and looking for a job?: No Are you interested in more education?: No Please select the resources that you would like help with: None THRIVE Score: 0 AUDIT C Alcohol Use Questionnaire (AUDIT-C) 1. How often do you have a drink containing alcohol?: Monthly or less 2. How many drinks containing alcohol do you have on a typical day when you are drinking?: 1 or 2 3. How often do you have six or more drinks on one occasion?: Never Total Score: 1 Score Reviewed/Action Taken: No BOBBY-7 AMB Questionnaire BOBBY-7 Date BOBBY - 7 assessed: 12/12/24 Feeling nervous, anxious, or on edge: 0 = Not at all Not being able to stop or control worryin = Not at all Worrying too much about different things: 0 = Not at all Trouble relaxin = Not at all Being so restless that it is hard to sit still: 0 = Not at all Becoming easily annoyed or irritable: 0 = Not at all Feeling afraid as if something awful might happen: 0 = Not at all Total BOBBY-7 score (0-4 normal; 5-9 mild; 10-14 moderate; 15-21 severe): 0 Source: Developed by Drs. Ian Gaytan, Gypsy Rodriguez, Jose Mayo and colleagues, with an educational gilberto from [employer]. BOBBY-7 Assessment Billing BOBBY-7 Assessment Tool: BOBBY-7 Assessment 75045 Review of Systems Const Details: - Cardiovascular: Denies chest pain or shortness of breath with activity. All systems reviewed & are unremarkable except as noted in HPI and below Physical exam (Primary Care) Vital Signs: Last Vital Signs Temp 97.8 F 01/09/25 10:12 Pulse 100 01/09/25 10:12 Resp 16 01/09/25 10:12 BP 175/80 H 01/09/25 10:12 Pulse Ox 99 01/09/25 10:12 Oxygen Delivery Method Room Air 01/09/25 10:12 Care Plan Goal for BP management: <140/90 at Goal BMI result Body Mass Index 23.4 Normal BMI Tobacco/Smoking Status: Tobacco use Status Tobacco use date assessed 12/12/24 01/09/25 10:17 Patient Tobacco Use Status Never used Tobacco 01/09/25 10:17 e-Cigarette/Vaping Use Never Used 01/09/25 10:17 PHQ-9: PHQ-9 Score PHQ-9: Total score 0 01/09/25 10:41 Depression Screening Interpretation: Negative Thrive Assessment: Date of Thrive Assessment Date Thrive assessed 12/12/24 01/09/25 10:17 Const Other: Appearance: Alert. Oriented X3. No acute distress. Head: Normal external exam. Normocephalic. Atraumatic. Eyes: Pupils are equal, round, and reactive to light. Extraocular movements intact. Conjunctiva and sclera normal. Eyelids normal. Throat: Pharynx normal. Uvula midline. Moist mucous membranes. Neck: Normal inspection. Neck supple. Full range of motion. Cardiovascular: Normal heart rate and rhythm. Heart sound abnormal with murmur noted. Pulses normal throughout. Respiratory: No respiratory distress. Painless inspiration. Back: Full range of motion noted. Skin: Skin warm and dry. Normal skin color. Normal skin turgor. Extremities:Extremities exhibit normal range of motion. Office Procedures Flu Questionnaire Does the patient have a severe egg allergy?: No Does the patient have severe life threatening allergies?: No Does the patient have a fever or illness today?: No Has the patient ever had Guillain-[place] Syndrome?: No Has the patient ever had any past reaction to a flu shot?: No Immunizations Fluarix [id number] (PF) 45 mcg (15 mcg x 3)/0.5 mL IM syringe Performing Provider: Gill Mcmillan PA-C [facility] Documented (not given) by: ANKITA Chase on 01/09/25 10:41 Reason Not Given: Patient Refused Coding Level of Care Code Est Pt Level 4 (72883) Complex EM visit Add On G2211 Diagnoses Hypertension I10 Heart murmur R01.1 Additional Codes BOBBY-7 Assessment Billing - BOBBY-7 Assessment Tool: BOBBY-7 Assessment 57748 ([id number]) PHQ-9 - 00260 - PHQ-9 Billing: Yes ([id number]) Assessment & Plan Assessment & Plan (1) Hypertension: Code(s): I10 - Essential (primary) hypertension Category: Medical Plan: The patient's in-office blood pressure of 169/81 mmHg is elevated, but home readings are well-controlled, suggesting possible white coat hypertension. She will continue taking lisinopril 20 mg daily, and a new prescription with three refills will be provided. She is instructed to monitor her blood pressure at home and report if it is consistently above 140/80 mmHg. A follow-up visit is scheduled in three months. (2) Heart murmur: Code(s): R01.1 - Cardiac murmur, unspecified Category: Medical Plan: A heart murmur was newly identified on examination, with suspicion for aortic stenosis, which might be contributing to her elevated blood pressure. An ultrasound of the heart is ordered to establish a baseline and investigate the cause. If the ultrasound shows significant stenosis, a referral to cardiology will be made. The patient was reassured that the condition is not an immediate concern and will be monitored. Plan Plan Patient was informed and verbally consented to the use of an ambient scribe for clinic note documentation during this visit. 1. Hypertension The patient's in-office blood pressure of 169/81 mmHg is elevated, but home readings are well-controlled, suggesting possible white coat hypertension. She will continue taking lisinopril 20 mg daily, and a new prescription with three refills will be provided. She is instructed to monitor her blood pressure at home and report if it is consistently above 140/80 mmHg. A follow-up visit is scheduled in three months. 2. Heart Murmur, Unspecified A heart murmur was newly identified on examination, with suspicion for aortic stenosis, which might be contributing to her elevated blood pressure. An ultrasound of the heart is ordered to establish a baseline and investigate the cause. If the ultrasound shows significant stenosis, a referral to cardiology will be made. The patient was reassured that the condition is not an immediate concern and will be monitored. 3. Immunizations It is recommended that the patient receive the high-dose influenza vaccine for seniors, which she can obtain from a local pharmacy. I informed the patient that I detected a new heart murmur during her examination. I explained that this could be due to aortic stenosis and may be related to her elevated blood pressure readings. To investigate this, I am ordering an ultrasound of her heart, reassuring her that it is not an immediate concern but requires monitoring. If the results are significant, I will refer her to a financial examiner. We discussed her hypertension, noting the discrepancy between her elevated in-office reading and her better home readings, which suggests white coat syndrome. We will continue lisinopril 20 mg, and I have instructed her to call if her home pressures are consistently over 140/80. I also recommended she get the high-dose senior flu shot from a pharmacy. We will follow up in three months. Orders: Orders Influenza [id number] Immunization Today Z23 - Encounter for immunization CA echo transthoracic complete Today I10 - Essential (primary) hypertension, R01.1 - Cardiac murmur, unspecified Medications: New lisinopril 20 mg PO DAILY 90 tabs 3RF Patient Instructions: - Continue to take one tablet of lisinopril 20 mg every day for your blood pressure. - Keep checking your blood pressure at home and call the office if it is regularly higher than 140/80. - An ultrasound of your heart will be scheduled at [facility] to investigate the heart murmur. - Please get the high-dose senior flu vaccine at a pharmacy. - A prescription for your lisinopril with three refills has been sent. - You should schedule a follow-up appointment in about three months.
--- OUTSIDE RECORDS SUMMARY | 2025-01-09 11:34 | XMS_ITS | Patient Health Record ---
Author Organization Total [employer] [facility] Address [address] [facility] [address] [place] [address] Care Team Providers Care Crop [place] Hand Name Role Phone GURVINDER CARVER Primary Care Provider MELVIN Kilpatrick Unavailable [phone] Allergies No Known Allergies Results Component Value Reference Range Notes SURGICAL PATHOLOGY Reviewed date:09/26/2024 07:12:47 PM Interpretation: Performing Lab:Testing performed or reported by [facility], a Service of [facility], [address] [place] [address] Dequan Maxwell MD, Pelt Inspector [facility]# [id number] Notes/Report: Patient Name: CHAU BARRERA Lab Patient : 1950 (Age: 74) Collection Date: 09/22/2024 Accession Date: 09/22/2024 Sign Out Date: 09/26/2024 Tissue Source: 1:EMB Final Diagnosis: Endometrium, biopsy: - Extremely scant atrophic endometrium (see note). - Endocervical glandular and squamous mucosa without histopathologic change. Note: The scant quantity of tissue received may not be product support sales representative of the endometrium. Primary Pathologist:Vicente Hamilton [...] specimen processing and staining is performed at [facility], [address] [place] [address] (CLIA#[id number]). Its performance characteristics determined by [facility]. Vishnu Zapien M.D. Pelt Inspector of Surgical Pathology, Lianne Jimenes M.D. 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) Active confirmed Problem Abnormal uterine bleeding ([id number]) Abnormal uterine and vaginal bleeding, unspecified (N93.9) Active confirmed Vital Signs Temperature 97.5 degrees Fahrenheit 06/29/2024 PT WILL GO TO [facility] [place] FOR REPEAT BP CK THIS AFTERNOON AND CALL US WITH OUTCOME Blood pressure diastolic 94 mm Hg 06/29/2024 PT WILL GO TO [facility] [place] FOR REPEAT BP CK THIS AFTERNOON AND CALL US WITH OUTCOME Height 61 in 06/29/2024 PT WILL GO TO [facility] [place] FOR REPEAT BP CK THIS AFTERNOON AND CALL US WITH OUTCOME Blood pressure systolic 220 mm Hg 06/29/2024 PT WILL GO TO [facility] [place] FOR REPEAT BP CK THIS AFTERNOON AND CALL US WITH OUTCOME Weight 138 lbs 06/29/2024 PT WILL GO TO [facility] [place] FOR REPEAT BP CK THIS AFTERNOON AND CALL US WITH OUTCOME BMI 26.07 kg/m2 06/29/2024 PT WILL GO TO [facility] [place] FOR REPEAT BP CK THIS AFTERNOON AND CALL US WITH OUTCOME Encounters Encounter Location Date Provider Diagnosis Total [address] [place] [phone] 08/04/2024 MELVIN SANDOVAL Total [address] [address] 06/29/2024 MELVIN SANDOVAL Abnormal uterine and vaginal bleeding, unspecified N93.9 and Elevated blood-pressure reading, without diagnosis of hypertension R03.[address] [place] [address] 09/22/2024 MELVIN SANDOVAL Abnormal uterine and vaginal bleeding, unspecified N93.9 and Postmenopausal bleeding N95.[address] [place] [address] 06/29/2024 MELVIN SANDOVAL Total [address] [address] 08/08/2024 MELVIN SANDOVAL Assessments Encounter Date Diagnosis [...] Insured Coverage Start Date Coverage End Date [employer] [facility] MEDICARE SOLUTIONS [address] [address] [place] [address] [id number] CHAU BARRERA Self - patient is the insured Medical (General) History Medical History History ICD Code Malignant melanoma of other part of trun k C43.59 Surgical History Surgery Date(Month/Year) Excision of melanoma from abdomen 2000 Hospitalization History Reason Date(Month/Year) childbirth
== END 2025-01-09 10:45 | disposition home or self-care (01) ==
LOC: HO.HMCSH 09:52
PROVIDERS: PCP Physician Assistant Medical; Visit Provider Physician Assistant Medical
DX: I10 Essential (primary) hypertension (principal); R01.1 Cardiac murmur, unspecified; Z23 Encounter for immunization

== ENCOUNTER → 2025-01-09 09:52 | Outpatient (BNVA) | payer MEDICARE, SELFPAY | PROVIDERS: PCP Physician Assistant Medical; Visit Provider Physician Assistant Medical | DX: I10 Essential (primary) hypertension (principal); R01.1 Cardiac murmur, unspecified; Z13.31 Encounter for screening for depression | CPT/HCPCS: 90471; 96127; 99212 ==

== ENCOUNTER → 2025-02-06 08:52 | Outpatient (REF) | payer MEDICARE, SELFPAY ==
--- NOTE | 2025-02-06 08:55 | CA_ITS ---
Transthoracic Echocardiogram Patient (Last, First, Middle): Opal Stewart K Gender: F Date of : 1950 Age: 74 Procedure Date: 02/06/2025 Procedure Type: Transthoracic Echocardiogram Location: OP Height: 154.94 cm Weight: 54.43 kg BSA: 1.52 m2 Heart Rate: 80 bpm BP: 140 / 80 mmHg [place]: TO Referring MD: Gill Mcmillan PA-C Symptoms: R01.1 - Cardiac murmur, unspecified Study Quality: Adequate w contrast ECG Rhythm: Sinus Conclusions: - The left ventricular systolic function is normal. The calculated ejection fraction is 64% by biplane method. - No obvious valvular pathology seen on this study. Findings Procedure Information Contrast agent, definity, is being given per protocol without apparent complications. Left Ventricle Normal left ventricular cavity size. There is normal left ventricular wall thickness. The left ventricular systolic function is normal. The calculated ejection fraction is 64% by biplane method. There is no evidence of regional wall motion abnormalities. Diastolic function is normal for age. Right Ventricle Normal right ventricular cavity size and systolic function. Atria Both atria are normal in size. Aortic Valve There is a normal trileaflet aortic valve. There is no aortic valve stenosis. There is no aortic valve regurgitation. Mitral Valve The mitral valve appears normal. There is no mitral valve regurgitation. There is no mitral valve stenosis. Pulmonic Valve The pulmonic valve is likely normal. Tricuspid Valve There is mild tricuspid valve regurgitation. There is no evidence of pulmonary hypertension. Great Vessels The asc aorta is normal in size. Venous The inferior vena cava is normal in size and collapses greater than 50% with inspiration. Pericardium/Pleural There is no evidence of pericardial effusion. Prior Study Comparison No prior study available for comparison. Recommendations, Care & Conclusions No obvious valvular pathology seen on this study. Measurements 2D Linear Measurements IVSd: 0.76 0.6-0.9/0.6-1.0 cm LVIDd: 3.04 3.9-5.3/4.2-5.9 cm LVIDd Index: 2.00 2.4-3.2/2.2-3.1 cm/m2 LVIDs: 1.96 2.0-3.6 cm LVPWd: 0.70 0.7-1.1 cm LA Diam: 2.60 2.7-3.8/3.0-4.0 cm LAIDs Index: 1.71 1.5-2.3 cm/m2 LV Mass: 66.06 67-162/88-224 g LV Mass Index: 43.46 43-95/49-115 g/m2 LVOT Diam: 1.90 3.0+(-)1.3 cm 2D Systolic Function EF 4C: 62.30 >55% EF 2C: 65.90 >55% EF BiP: 64.20 >55% Mitral Valve MV Pk E: 0.53 MV PK A: 0.61 MV Decel Time: 248.00 E/A: 0.90 E'Lateral: 12.50 E'Medial: 7.83 E/E' Med: 6.80 E/E' Lat: 4.20 PHT: 73.00 MVA PHT: 3.01 Decel Major: 2.14 Aortic Valve AoV Pk Kwabena: 1.72 AoV Mn Kwabena: 1.12 AoV VTI: 0.31 AoV Pk Grad: 12.00 Aov Mn Grad: 6.00 VICTORINO Cont.VTI: 2.38 LVOT LVOT Pk Kwabena: 1.52 LVOT Mn [place]abena: 1.03 LVOT VTI: 0.26 LVOT Pk Grad: 9.00 LVOT Mn Grad: 5.00 LVOT Diam: 1.90 LVOT Area: 2.84 Diastolic Function MV Pk E: 0.53 MV Pk A: 0.61 E/A: 0.90 E'Medial: 7.83 E/E' Med: 6.80 E' Laterial: 12.50 E/E' Lat: 4.20 Right Ventricle TAPSE (mm): 19.30 TVS' Kwabena: 11.30 Tricuspid Valve TR Pk Kwabena: 2.14 TR Pk Grad: 18.00 RA Press: 3.00 RVSP: 21.00 Great Vessels Aorta Sinus of Valsalva: 2.66 2.0-3.5 cm Ao Asc: 2.70 2.1-3.4 cm Updated in Other Vendor System with Status of Final Som Singh MD electronically signed on 02/06/2025 12:33:59 PM with status of Final
== END ==
LOC: HO.CARD 08:52
PROVIDERS: PCP Physician Assistant Medical; Visit Provider Physician Assistant Medical
DX: R01.1 Cardiac murmur, unspecified (principal)
CPT/HCPCS: 93306; Q9957

== ENCOUNTER → 2025-02-06 08:55 | Outpatient (BNV) | payer MEDICARE, SELFPAY | PROVIDERS: PCP Physician Assistant Medical; Visit Provider Internal Medicine | DX: R01.1 Cardiac murmur, unspecified (principal) | CPT/HCPCS: 93306 ==

== ENCOUNTER 2025-02-23 08:59 | Outpatient (AMB) | payer MEDICARE, SELFPAY ==
--- NOTE | 2025-02-23 09:13 | MHC.OFFVIS ---
Vital Signs 02/23/25 09:18 Height 5 ft 2 in Weight 123 lb BMI 22.5 BP 178/86 H Blood Pressure Location Lt brachial Position Sitting Pulse 81 Intake Visit Reasons: colonoscopy Intake Note: New patient in office today for colonoscopy screening. CC: Pt denies having any GI symptoms or concerns. Underwater Roboticist Required: No Accompanied by: Self / Same As Patient Allergies No Known Allergies Allergy (Verified 02/23/25 09:21) HPI HPI colonoscopy: Details: 74-year-old female here for preprocedural meeting to discuss a screening colonoscopy. She is referred by Gill Mcmillan. PMX High cholesterol Osteopenia Hypertension Heart murmur * SURGICAL HISTORY colonoscopy many, many years ago * ALLERGIES: NKDA * [employer] LABS: Laboratory Tests 08/28/24 09:42 WBC 6.1 Hgb 15.8 Hct 46.2 Plt Count 246 Estimated GFR > 60 Hemoglobin A1c % 5.4 Total Bilirubin 0.5 Direct Bilirubin 0.2 AST 29 ALT 23 Alkaline Phosphatase 63 TSH 1.54 TODAY'S VISIT Prior scope: Many many years ago and per her knowledge it was negative. Bowel or upper GI problems: No Cardiac or respiratory problems: No Anesthesia problems: Naive ID problems: No Family history colon cancer polyps: No PFSH Medical History Colon cancer screening Annual physical exam Establishing care with new doctor, encounter for Heart murmur History of mammogram (~11/24/24) Breast mass, right Osteopenia (~10/10/24) Hyperlipidemia Pure hypercholesterolemia, unspecified Hypertension Surgical History H/O colonoscopy Family History Father Lung cancer Mother No problems noted. Social History Housing: House Alcohol intake: current Alcohol intake frequency: holidays/special occasions only Alcohol type: wine Patient Tobacco Use Status: Never used Tobacco e-Cigarette/Vaping Use: Never Used service: No Current occupational status: retired Cognitive needs: No Hearing needs: No Vision needs: Yes (reading glasses/cheaters) Review of Systems Const Denies fatigue, Denies fever(s), Denies night sweats, Denies poor appetite and Denies weight loss ENT Reports Normal hearing present, Denies dental pain, Denies dysphagia, Denies hearing loss, Denies mouth pain, Denies odynophagia, Denies throat swelling, Denies tongue swelling and Reports other (Dentition adequate) Card Reports no additional complaints Resp Reports no additional complaints GI Details: Denies abdominal pain, Denies melena, Denies bloating, Denies hematochezia, Denies constipation, Denies GI cramping, Denies dysphagia, Denies excessive flatus, Denies early satiety, Denies heartburn, Denies diarrhea, Denies nausea, Denies odynophagia, Denies vomiting and Denies hematemesis Skin/Breast Denies pruritus, Denies lesions, Denies rash and Denies jaundice Neuro Reports Normal hearing present and Denies Abnormal speech present Endo Denies fatigue Aller/Immun Denies throat swelling and Denies tongue swelling Physical Exam Vital Signs: Last Vital Signs Pulse 81 02/23/25 09:18 BP 178/86 H 02/23/25 09:18 BMI result Body Mass Index 22.5 Const General: cooperative, no acute distress, well developed and well groomed Nutritional Appearance: well nourished Orientation/consciousness: oriented to person, oriented to place and oriented to time Limitations: No language barrier HEENT Head: Yes normocephalic and Yes atraumatic Eyes General: appearance normal, both eyes and all related structures Pupils: Equal, round and reactive pupils present Neck Neck: Yes normal visual inspection and Yes no lymphadenopathy Thyroid: Thyroid normal Resp Effort & Inspection: normal respiratory effort and able to speak in complete sentences Auscultation: clear to auscultation bilaterally Cardio Rate: regular rate Rhythm: regular rhythm Heart sounds: Normal, physiologic split S2 sound present Peripheral pulses: radial pulses present and posterior tibial pulses present GI Inspection: No distended and No Abdominal panniculus present Palpation (GI): Soft to palpation, nontender, no guarding, not rigid and No hepatosplenomegaly present Percussion: Yes normal to percussion Auscultation: normal bowel sounds Rectal Exam - Female: deferred Skin General skin exam: no rashes or lesions noted, turgor normal, skin not dry, no jaundice, No spider nevi and no striae Rashes: no rashes Nails: normal Neuro General: oriented to person, oriented to place and oriented to time Cranial nerves: Yes Equal, round and reactive pupils present and Yes Normal hearing present Speech: No Abnormal speech present Extrem General: Yes normal to inspection, No clubbing, No cyanosis and No edema Psych Appearance: grossly normal and well kempt Mental Status: mental status grossly normal Speech and movement: Normal speech and movement present Affect: normal affect Attitude: cooperative Thought process: Normal thought process present and not confabulating Thought content: Normal thought content present Insight: Good insight present (Psych) Judgement: Good judgement present (Psych) Assessment & Plan Assessment & Plan (1) Pre-op examination: Code(s): Z01.818 - Encounter for other preprocedural examination Category: Medical Plan Prior scope: Many many years ago and per her knowledge it was negative. Bowel or upper GI problems: No Cardiac or respiratory problems: No Anesthesia problems: Naive ID problems: No Family history colon cancer polyps: No Orders: Referrals GI Procedure Notification Z01.818 - Encounter for other preprocedural examination Medications: New bisacodyl (Dulcolax (bisacodyl)) 10 mg (2 x 5 mg) PO BEDTIME 4 tabs 0RF 2 days peg 3350-electrolytes [id number] -5.86 gram (Golytely) until fecal effluent is clear; do not exceed a total volume of 2,000 mL 240 mL PO Q10M 4,000 mL 0RF 1 day Z12.11 - Encounter for screening for malignant neoplasm of colon Coding Level of Care Code New Pt Level 3 (02654) Diagnoses Pre-op examination Z01.818
[2025-02-23 09:18] VITALS: BP 178/86; PULSE 81; BMI 22.5
== END 2025-02-23 10:02 | disposition home or self-care (01) ==
LOC: HO.HGI 09:00
PROVIDERS: PCP Physician Assistant Medical; Visit Provider Nurse Practitioner
DX: Z01.818 Encounter for other preprocedural examination (principal); Z12.11 Encounter for screening for malignant neoplasm of colon
CPT/HCPCS: 99024

== ENCOUNTER → 2025-02-23 08:59 | Outpatient (BNVA) | payer MEDICARE, SELFPAY | PROVIDERS: PCP Physician Assistant Medical; Visit Provider Nurse Practitioner | DX: Z01.818 Encounter for other preprocedural examination (principal) | CPT/HCPCS: 99212 ==